=== PATIENT | male | born 1990 | race Caucasian/White ===

== ENCOUNTER 2020-12-23 09:56 | Emergency (ER) | payer MEDICAID, SELFPAY ==
--- NOTE | 2020-12-23 09:57 | ED.GENADUL_ITS ---
Discharge Plan Disposition Patient Disposition: HOME Condition: Good Discharge Details Clinical Impression: Muscle spasm, Contusion Primary Care Provider: Anaya,Local ED Provider: Olive Oconnor Home Meds and New Rx's Prescriptions: New cyclobenzaprine 10 mg tablet 10 mg PO TID PRN (Reason: muscle spasm) Qty: 10 RF: 0 Continued dextroamphetamine-amphetamine [Adderall] 5 MG tablet 5 mg PO DAILY RF: 0 Omeprazole Magnesium [Prilosec] 10 MG SUSPDR.PKT 20 mg PO DAILY RF: 0 alprazolam [Xanax] 1 MG tablet 1 - 2 mg PO DAILY PRN PRNRF: 0 Discharge Instructions Instructions: Contusion in Adults (ED), Muscle Spasm (ED) Additional Instructions: Encourage water intake. Please continue with Tylenol and/or ibuprofen as needed for discomfort. You may augment this with the Flexeril as prescribed to help with muscle spasm. Do not drive will take this medication. Please encourage gentle stretching and frequent ambulation. He may use massage or heat to help with muscle spasms. Referral for primary care has been sent. I would like for you to be reevaluated in the next 1 to 2 weeks. If you develop weakness, sensation changes, change in your bowel or bladder habits or other new/worsening symptoms please seek care urgently once again. Medical Decision Making Patient is a pleasant 30-year-old male presenting today with chief complaint of right groin and left pain. He reports that yesterday, while snowboarding, he went off a jump and landed directly on his left hip. States that he immediately noted right groin pain. Since then, the left hip has become more painful. Is also endorsing some pain over the sacrum and coccyx. Denies any urinary bowel dysfunction. No incontinence. Denies other injury the time of the incident. He was helmeted and denies striking his head or loss of consciousness. No nausea or vomiting. Does not take anything for his discomfort. States that he was able to snowboard down the wrist but not in. However, upon awakening this morning, his pain was greatly increased. He is not taking anything for this. Has been ambulating with a cane today to help with his discomfort. Patient denies any numbness or tingling. On exam he appears uncomfortable but nontoxic. He has slight midline discomfort over the sacrum and coccyx. No step-off, swelling, ecchymosis over this area. No midline tenderness elsewhere. No pain over the SI joints. Patient is very tender over the medial aspect of the upper right side. No ecchymosis, deformity. She is also tender over the left hip, primarily over the greater trochanter and iliac crest. No pelvic instability is appreciated. He has 2+ distal pulses in his lower extremity, no saddle paresthesias, reflexes intact and equal bilaterally. Do not see evidence at this time to suggest cauda equina. I have low suspicion for fracture or pelvic instability. I not see any ligamentous disruption at this point. Will give Tylenol, ibuprofen and Flexeril to help with discomfort. I do believe there is a large amount of muscular spasm after sleeping last night. Plan for imaging of the left hip and pelvis. He is tender over the sacrum will obtain imaging of the well. FINDINGS: Bones/joints: Normal. No acute fracture. Soft tissues: Normal. IMPRESSION: Normal sacrum and coccyx FINDINGS: Bones/joints: Unremarkable. No acute fracture. Soft tissues: Unremarkable. IMPRESSION: No acute findings. I discussed the findings with the patient. He is feeling somewhat improved although still tight after the medication. He will continue with Tylenol and ibuprofen to help with discomfort.. He will continue with Flexeril as needed for muscle spasm. Return precautions were discussed. He does not have a local primary care. I have asked care management to help arrange for follow-up in the next 2 weeks for reevaluation. We did discuss to return to activity. ADD. Gentle stretching and frequent ambulation. Also questions and concerns were addressed and he is in agreement with this plan. HPI General Mode of arrival: wheelchair . Date/Time Provider Initiated Documentation: 12/23/20 09:57 . Limitations to Documentation: no limitations . Information obtained by: patient and RN notes reviewed . History of Present Illness 30 year old M presents to the emergency department with the chief complaint of right groin and left hip injury, described as severe, with intensity rated at 7. and is localized to the left, right and lower extremity. Patient reports no radiation. Patient started experiencing this day(s) (1) and it has been constant. Immobilization improves symptom(s), Movement worsens symptoms . Patient notes no other symptoms.. Patient did receive the following treatments prior to arrival, none Related Data Home Medications Medication Instructions Recorded Confirmed Omeprazole Magnesium [Prilosec] 20 mg PO DAILY packet 09/18/17 12/23/20 dextroamphetamine-amphetamine 5 mg PO DAILY tab-cap 09/18/17 12/23/20 [Adderall] alprazolam [Xanax] 1 - 2 mg PO DAILY PRN PRN 12/08/17 12/23/20 cyclobenzaprine 10 mg PO TID PRN #10 tab 12/23/20 Previous Rx's Medication Instructions Recorded cyclobenzaprine 10 mg PO TID PRN #10 tab 12/23/20 Allergies Allergy/AdvReac Type Severity Reaction Status Date / Time Sulfa (Sulfonamide Allergy Intermediate Unverified 12/23/20 10:07 Antibiotics) lactose Allergy Mild Unverified 12/23/20 10:07 Review of Systems Constitutional Constitutional: Reports as per HPI, Denies chills, Denies fatigue, Denies fever(s), Denies frequent falls and Denies headache(s) Eyes Eyes: Denies change in vision ENT Ears, Nose, Mouth, and Throat: Denies headache(s) Cardiovascular Cardiovascular: Denies chest pain, Denies dyspnea and Denies dyspnea on exertion Respiratory Respiratory: Denies cough, Denies dyspnea and Denies dyspnea on exertion Gastrointestinal Gastrointestinal: Denies abdominal pain, Denies change in bowel habits and Denies fecal incontinence Genitourinary Genitourinary: Reports as per HPI, Denies urinary hesitancy and Denies urinary incontinence Musculoskeletal Musculoskeletal: Reports as per HPI, Reports back pain, Denies muscle weakness, Denies numbness, Reports stiffness and Denies tingling Integumentary/Breasts Skin/Breast: Reports as per HPI and Denies rash Neurologic Neurologic: Reports as per HPI, Denies frequent falls, Denies headache(s), Denies localized weakness, Denies numbness, Denies radicular pain, Denies sensory deficit, Denies tingling and Denies paresthesias Endocrine Endocrine: Denies fatigue PFSH Medical History ADHD Anxiety Autoimmune disease Dyspepsia Surgical History EGD - MAC (12/10/17) Repair, ACL Trigger Finger release Social History Smoking/Tobacco Use Status: Former Tobacco Use Quit Date: 11/22/20 Smoking risk assessment performed?: Yes Drug use: Daily Substance use type: marijuana Exam Const General: cooperative, healthy appearing, uncomfortable, no acute distress, well developed and well groomed Nutritional Appearance: average body habitus and well nourished Orientation: alert and awake Eyes General: appearance normal, both eyes and all related structures Neck Neck: normal visual inspection, full ROM, no lymphadenopathy and no meningeal s igns Resp Effort & Inspection: normal respiratory effort and able to speak in complete sentences Auscultation: clear to auscultation bilaterally, no rales, no rhonchi and no wheezes Cardio Rate: regular rate Rhythm: regular rhythm Heart Sounds: S1 normal and S2 normal Back/Spine/Pelvis Back: no CVA tenderness Cervical Spine: normal cervical lordosis, cervical ROM normal, No cervical spasm, No cervical spinal tenderness and No step off deformity Thoracic/Lumbar Spine: thoracic and lumbar spine normal to inspection, No thoraco-lumbar ROM normal (patient will not bend forward secondary to pain), No thoracic spinal tenderness, No lumbar spinal tenderness and No straight leg raise positive (patient unable to complete secondary to pain in L hip and R groin) Pelvis: pain with anterior-posterior compression (pain over left side of pelvis with palpation, no instability noted), no buttock ecchymosis, no buttock tenderness, no buttock swelling and no unilateral elevation of iliac crest Sacroiliac joints: bilaterally nontender Sacrum: no ecchymosis, no erythema, no swelling and tenderness Coccyx: no swelling and tenderness Skin General skin exam: no rashes or lesions noted Neuro General: patient alert and patient awake Cognition: normal cognition Speech: speech normal Gait: gait abnormal (ambulating with cane) Motor: muscle tone normal throughout, strength 5/5 throughout, no movement abnormalities noted and no fasciculations Sensory Exam: no sensory deficits noted (no saddle paresthesias) DTR's: Rt Patellar: 2+, Lt Patellar: 2+, Rt Ankle: 2+ and Lt Ankle: 2+ Extrem General: normal to inspection, full ROM, capillary refill normal, no joint enlargement, no pedal edema, no calf tenderness and abnormal gait Right lower extremity: normal to inspection Upper/lower leg/hip images: 1. area of discomfort. No swelling, ecchymosis or deformity. No erythema or warmth. Patient has limited external rotation of the right hip secondary to pain in the groin. He is able to resist both medially and laterally but does have increased pain with medial resistance. Patient is 2+ distal pulses. No saddle paresthesias. Reflexes intact. No evidence to suggest muscular defect or rupture. 2. Patient reports that this is the area that he landed on. He is quite tender over this area with palpation. No ecchymosis or swelling. He has full range of motion of the hip but reports increased discomfort with external rotation. Reflexes are intact. 2+ pulses. He has pain with AP and lateral compression of this area but no instability is noted. She is doing what is from the pressure applied to the area of discomfort. Psych Appearance: grossly normal and well kempt Mental Status: mental status grossly normal Speech and Movement: speech and movement normal
[2020-12-23 10:01] VITALS: BP 133/78; PULSE 91; RESP 16; TEMP 36.5; O2SAT 96
--- NOTE | 2020-12-23 10:15 | DI.RAD_ITS ---
EXAM: XR SACRUM COCCYX CLINICAL HISTORY: fall snowboarding yesterday. TECHNIQUE: 2D digital imaging was performed. COMPARISON: CR,XR XR HIP LT COMPLETE AP PELVIS from 12/23/2020 FINDINGS: There is no obvious sacral or coccyx fracture. Sacroiliac joints appear unremarkable. Bone density is normal. No osseous lesions evident. IMPRESSION: DATA REPOSITORY: RADIATION DOSE DELIVERED:
--- NOTE | 2020-12-23 10:20 | DI.RAD_ITS ---
EXAM: XR HIP LT COMPLETE AP PELVIS CLINICAL HISTORY: fall on left hip snowboarding yesterday. TECHNIQUE: 2D digital imaging was performed. COMPARISON: No exams were available for comparison FINDINGS: There is no evidence of pelvic fracture or diastasis of the symphysis pubis and sacroiliac joints. R ight hip appears were unremarkable. Although there are no obvious fractures of the left hip, please note that the lateral aspect of the greater trochanter of the left hip is not included on the field o f view here. IMPRESSION: As above. If clinically indicated additional images of the left hip can be performed to include the entire greater trochanter. DATA REPOSITORY: RADIATION DOSE DELIVERED:
[2020-12-23] MEDS: Acetaminophen 500 MG TAB 1000 MG PO (10:29)
[2020-12-23] MEDS: Cyclobenzaprine 10 MG TAB PO (10:30)
[2020-12-23] MEDS: Ibuprofen 600 MG TAB PO (10:30)
--- NOTE | 2020-12-23 11:11 | DI.VRAD_ITS ---
PROCEDURE INFORMATION: Exam: XR Sacrum and Coccyx, 2 or More Views Exam date and time: 12/23/2020 10:59 AM Age: 30 years old Clinical indication: Injury or trauma; Blunt trauma (contusions or hematomas); Injury details: Fall snowboarding TECHNIQUE: Imaging protocol: XR of the sacrum and coccyx, 2 or more views. COMPARISON: CR XR HIP LT COMPLETE AP PELVIS 12/23/2020 10:41 AM FINDINGS: Bones/joints: Normal. No acute fracture. Soft tissues: Normal. IMPRESSION: Normal sacrum and coccyx Dictated and Authenticated by: Ned Guerrier MD. Ordering:ILENE Schaefer MD
--- NOTE | 2020-12-23 11:11 | DI.VRAD_ITS ---
PROCEDURE INFORMATION: Exam: XR Left Hip with Pelvis when Performed Exam date and time: 12/23/2020 11:02 AM Age: 30 years old Clinical indication: Injury or trauma; Fall; Blunt trauma (contusions or hematomas); Left; Groin TECHNIQUE: Imaging protocol: XR Left hip with pelvis when performed. Views: 2 or 3 views. COMPARISON: No relevant prior studies available. FINDINGS: Bones/joints: Unremarkable. No acute fracture. Soft tissues: Unremarkable. IMPRESSION: No acute findings. Dictated and Authenticated by: Ned Guerrier MD. Ordering:ILENE Schaefer MD
--- NOTE | 2020-12-23 11:30 | NUR.NOTE ---
Nursing Note: Referral given to Care Management to establish PCP and follow up in 2 weeks. Constance Villarreal
[2020-12-23 11:45] VITALS: BP 126/66; PULSE 76; RESP 16; TEMP 36.7; O2SAT 99
== END 2020-12-23 11:46 | disposition home or self-care (01) ==
PROVIDERS: Emergency Provider Physician Assistant
DX: S70.02XA Contusion of left hip, initial encounter (principal); S30.1XXA Contusion of abdominal wall, initial encounter; M62.838 Other muscle spasm; V00.311A Fall from snowboard, initial encounter; Y93.23 Activity, snow (alpine) (downhill) skiing, snowboarding, sledding, tobogganing and snow tubing
CPT/HCPCS: 99284; 72220; 73502

== ENCOUNTER 2021-01-13 15:07 | Emergency (ER) | payer MEDICAID, SELFPAY ==
[2021-01-13 15:19] VITALS: BP 125/89; PULSE 92; RESP 20; TEMP 36.7; O2SAT 98
--- NOTE | 2021-01-13 15:25 | ED.GENADUL_ITS ---
Discharge Plan Disposition Patient Disposition: HOME Condition: Stable Discharge Details Clinical Impression: Distal radial fracture Primary Care Provider: Anaya,Local ED Provider: Olive Oconnor Home Meds and New Rx's Prescriptions: New ibuprofen 800 mg tablet 800 mg PO TID PRN (Reason: pain) Qty: 20 RF: 0 Continued dextroamphetamine-amphetamine [Adderall] 5 MG tablet 5 mg PO DAILY RF: 0 Omeprazole Magnesium [Prilosec] 10 MG SUSPDR.PKT 20 mg PO DAILY RF: 0 alprazolam [Xanax] 1 MG tablet 1 - 2 mg PO DAILY PRN PRNRF: 0 Discharge Instructions Instructions: Wrist Fracture in Adults (ED) Additional Instructions: Encourage rest, ice, elevation. Tylenol and/or ibuprofen as needed for discomfort. Ibuprofen has been sent to your pharmacy as discussed. Please keep splint on until evaluated by orthopedics. Sling to help with elevation. Please call orthopedics on Friday to schedule follow-up appointment. Please avoid any lifting with his hand. If you develop any new or worsening symptoms please seek care urgently once again. Referrals: Chang Barnett MD [ [facility] STAFF PHYSICIAN] - Discharge Data Discharge Date/Time-TO BE ENTERED AT DEPARTURE: 01/13/21 16:40 Medical Decision Making Patient is a pleasant [id number] 30-year-old male presenting chief complaint of left wrist pain. He reports a prior to arrival he was snowboarding when he lost his edge coming off of the rail. Landed with the left hand bent behind him. Immediately noted distal radius pain that can radiate up into the snuffbox. Denies any numbness or tingling. Denies other injury the time of the incident. He was wearing a helmet. On exam, patient appears nontoxic. He does have swelling and palpable defect to the distal radius. He does have tenderness over the anatomical snuffbox as well as with axial loading of the thumb. Sensation is intact, to the pulses, capillary refill is intact. Full range of motion of the elbow. Patient is requesting analgesics and feels that ibuprofen will work well. We will give him ibuprofen and obtain x-ray of the left wrist with navicular views. X-rays reviewed by myself. I am concerned for an intra-articular distal radius fracture that is per slightly comminuted but fairly nondisplaced. Patient will be fitted with a thumb spica splint. I encouraged rest, ice, elevation. Tylenol and/or ibuprofen as needed for discomfort. He reports he done well with 800 mg ibuprofen historically. Will prescribe him this. Patient will follow up with orthopedics and will call Friday to schedule appointment. Return precautions were discussed. All his questions and concerns were and he is in agreement with this plan. HPI General Mode of arrival: ambulatory . Date/Time Provider Initiated Documentation: 01/13/21 15:17 . Limitations to Documentation: no limitations . Information obtained by: patient and RN notes reviewed . History of Present Illness 30 year old M presents to the emergency department with the chief complaint of left wrist pain, described as moderate, with intensity rated at 6. Quality is described as aching, and is localized to the left and upper extremity. Patient reports no radiation. Patient started experiencing this minute(s) and it has been constant. Immobilization improves symptom(s), Movement worsens symptoms . Patient notes no other symptoms.. Patient did receive the following treatments prior to arrival, none Related Data Home Medications Medication Instructions Recorded Confirmed Omeprazole Magnesium [Prilosec] 20 mg PO DAILY packet 09/18/17 01/13/21 dextroamphetamine-amphetamine 5 mg PO DAILY tab-cap 09/18/17 01/13/21 [Adderall] alprazolam [Xanax] 1 - 2 mg PO DAILY PRN PRN 12/08/17 12/23/20 ibuprofen 800 mg PO TID PRN #20 tab 01/13/21 Previous Rx's Medication Instructions Recorded ibuprofen 800 mg PO TID PRN #20 tab 01/13/21 Allergies Allergy/AdvReac Type Severity Reaction Status Date / Time Sulfa (Sulfonamide Allergy Intermediate Unverified 01/17/21 09:43 Antibiotics) lactose Allergy Mild Unverified 01/17/21 09:43 General Stated Complaint: Orthopedic SEVERO: 4 Review of Systems Constitutional Constitutional: Reports as per HPI, Denies chills, Denies fever(s), Denies headache(s) and Denies weakness ENT Ears, Nose, Mouth, and Throat: Denies headache(s) Cardiovascular Cardiovascular: Reports as per HPI Respiratory Respiratory: Reports as per HPI and Denies cough Musculoskeletal Musculoskeletal: Reports as per HPI and Denies tingling Integumentary/Breasts Skin/Breast: Reports as per HPI, Denies rash and Denies wounds Neurologic Neurologic: Reports as per HPI, Denies headache(s), Denies tingling, Denies paresthesias and Denies weakness PFSH Medical History ADHD Anxiety Autoimmune disease Dyspepsia Surgical History EGD - MAC (12/10/17) Repair, ACL Trigger Finger release Social History Smoking/Tobacco Use Status: Former Tobacco Use Quit Date: 11/22/20 Smoking risk assessment performed?: Yes Drug use: Daily Substance use type: marijuana Current gender identity: male Do you feel safe at home: Yes Do you feel safe in your relationship?: Yes Exam Const General: cooperative, healthy appearing, comfortable, no acute distress, well developed and well groomed Nutritional Appearance: average body habitus and well nourished Orientation: alert and awake Resp Effort & Inspection: normal respiratory effort, able to speak in complete sentences and no respiratory distress Cardio Rate: regular rate Rhythm: regular rhythm Skin General skin exam: no rashes or lesions noted Lesions: no lesions Rashes: no rashes Trauma: no lacerations or abrasions Neuro General: patient alert and patient awake Cognition: normal cognition Speech: speech normal Gait: normal gait Motor: muscle tone normal throughout Sensory Exam: no sensory deficits noted Extrem Left upper extremity: normal capillary refill, no joint enlargement, elbow/forearm Details: normal to inspection, normal ROM and distal pulses intact; no tenderness, no swelling and no deformity, wrist Details: abnormal to inspection, tenderness Location: of the distal radius and of the anatomic snuffbox, swelling Location: of the dorsal wrist, abnormal ROM, deformity, normal vascular exam and radial pulse present; no abrasions, no lacerations, no ecchymosis and no crepitus and hand Details: normal to inspection, normal capillary refill, neuromotor exam normal, neurosensory exam normal, tenderness (with axial loading of thumb over snuff box) and vascular exam Details: radial pulse present and normal capillary refill Psych Appearance: grossly normal and well kempt Mental Status: mental status grossly normal Speech and Movement: speech and movement normal Course Vital Signs Vital signs: Vital Signs Temperature 36.7 C 01/13/21 15:19 Pulse 92 H 01/13/21 15:19 Respiratory Rate 20 01/13/21 15:19 Blood Pressure 125/89 01/13/21 15:19 Pulse Oximetry 98 01/13/21 15:19 Temperature 36.7 C 01/13/21 15:19 Temperature Source Skin 01/13/21 15:19 Pulse 92 H 01/13/21 15:19 Respiratory Rate 20 01/13/21 15:19 Blood Pressure 125/89 01/13/21 15:19 Blood Pressure Position Sitting 01/13/21 15:19 Pulse Oximetry 98 01/13/21 15:19 Oxygen Delivery Method Room Air 01/13/21 15:19 Oxygen Flow Rate 0 01/13/21 15:19 Pain Level 6 01/13/21 15:19
--- NOTE | 2021-01-13 15:30 | DI.RAD_ITS ---
EXAM: XR WRIST LT COMP NAVICULAR CLINICAL HISTORY: fall snowboarding TECHNIQUE: COMPARISON: No exams were available for comparison FINDINGS: Four views were obtained. There is a comminuted fracture of the distal radius which extends through the distal articular surface. There is an associated mildly displaced ulnar styloid fracture. No fr acture seen involving the carpal bones. Incidental note is made of an old healed 2nd metacarpal fracture. IMPRESSION: RADIATION DOSE DELIVERED: Total DLP
[2021-01-13] MEDS: Ibuprofen 600 MG TAB PO (15:36)
--- NOTE | 2021-01-13 16:44 | DI.VRAD_ITS ---
PROCEDURE INFORMATION: Exam: XR Left Wrist Exam date and time: 01/13/2021 4:06 PM Age: 30 years old Clinical indication: Other: Fall snowboarding TECHNIQUE: Imaging protocol: XR Left wrist. Views: 3 or more views. COMPARISON: No relevant prior studies available. FINDINGS: Bones/joints: Markedly comminuted distal radial fracture including extension to the radiocarpal joint with minimal displacement but overall mild apex palmar angulation. Fracture tip of ulnar styloid of indeterminate age. Old healed fracture base of index finger metacarpal. No line Soft tissues: Moderate soft tissue swelling of the wrist. IMPRESSION: 1. Acute comminuted distal radial fracture with articular surface involvement and ulnar styloid fracture of indeterminate age. 2. Old healed fracture metacarpal index finger. Dictated and Authenticated by: Billy Curtis MD. Ordering:ILENE Schaefer MD
== END 2021-01-13 16:40 | disposition home or self-care (01) ==
PROVIDERS: Emergency Provider Physician Assistant
DX: S52.572A Other intraarticular fracture of lower end of left radius, initial encounter for closed fracture (principal); S52.612A Displaced fracture of left ulna styloid process, initial encounter for closed fracture; V00.311A Fall from snowboard, initial encounter; Y93.23 Activity, snow (alpine) (downhill) skiing, snowboarding, sledding, tobogganing and snow tubing
CPT/HCPCS: 29125; 99283; 73110

== ENCOUNTER 2021-01-17 11:19 | Outpatient (CLI) | payer MEDICAID, SELFPAY ==
--- NOTE | 2021-01-17 09:51 | DI.RAD_ITS ---
EXAM: XR WRIST LT COMPLETE CLINICAL HISTORY: distal radius fracture. TECHNIQUE: 2D digital imaging was performed. COMPARISON: CR,XR XR WRIST LT COMP NAVICULAR from 01/13/2021 FINDINGS: In splint views compared to 01/13/2021. Again noted are the comminuted fracture fragments of the distal radius which fracture lines violates the radiocarpal joint surface. Fracture of the tip of the ulnar styloid process is also again noted. There is no carpal dislocation. No obvious scaphoid fracture. IMPRESSION: DATA REPOSITORY: RADIATION DOSE DELIVERED:
== END 2021-01-17 11:20 | disposition home or self-care (01) ==
LOC: DIORS 11:19
PROVIDERS: Visit Provider Physician Assistant Surgical
DX: S52.592A Other fractures of lower end of left radius, initial encounter for closed fracture (principal); S52.612A Displaced fracture of left ulna styloid process, initial encounter for closed fracture
CPT/HCPCS: 73110

== ENCOUNTER 2021-02-14 10:38 | Outpatient (CLI) | payer MEDICAID, SELFPAY ==
--- NOTE | 2021-02-14 10:30 | DI.RAD_ITS ---
EXAM: XR WRIST LT LIMITED CLINICAL HISTORY: f/u fracture. TECHNIQUE: 2D digital imaging was performed. COMPARISON: CR XR WRIST LT COMPLETE from 01/17/2021 FINDINGS: Cast has been removed. The fracture lines in distal radius are again noted and again noted to violat es the radiocarpal joint surface. The ulnar styloid fracture is also again noted. Scapholunate dist ance is normal. No fracture of the scaphoid evident. No carpal dislocation. IMPRESSION: DATA REPOSITORY: RADIATION DOSE DELIVERED:
== END 2021-02-14 10:39 | disposition home or self-care (01) ==
LOC: DIORS 10:38
PROVIDERS: Visit Provider Physician Assistant
DX: S52.612D Displaced fracture of left ulna styloid process, subsequent encounter for closed fracture with routine healing (principal); S52.592D Other fractures of lower end of left radius, subsequent encounter for closed fracture with routine healing
CPT/HCPCS: 73100

== ENCOUNTER 2021-03-14 15:41 | Outpatient (CLI) | payer MEDICAID, SELFPAY ==
--- NOTE | 2021-03-14 14:00 | DI.RAD_ITS ---
Exam(s) XR WRIST LT LIMITED EXAM: XR WRIST LT LIMITED CLINICAL HISTORY: F/U FRACTURE. TECHNIQUE: 2D digital imaging was performed. COMPARISON: CR XR WRIST LT LIMITED from 02/14/2021 FINDINGS: There has been some healing at the multiple fracture lines in the distal radius. Fracture lines are still faintly visible. No significant displacement. Tip of the ulnar styloid process fractures agai n noted. Scaphoid appears unremarkable on these two views. Is no significant ulnar variance. IMPRESSION: DATA REPOSITORY: RADIATION DOSE DELIVERED:
== END 2021-03-14 15:42 | disposition home or self-care (01) ==
LOC: DIORS 15:41
PROVIDERS: Visit Provider Student in an Organized Health Care Education/Training Program
DX: S52.592D Other fractures of lower end of left radius, subsequent encounter for closed fracture with routine healing (principal); S52.612D Displaced fracture of left ulna styloid process, subsequent encounter for closed fracture with routine healing
CPT/HCPCS: 73100

== ENCOUNTER 2021-04-24 15:19 | Outpatient (CLI) | payer MEDICAID, SELFPAY ==
--- NOTE | 2021-04-24 14:45 | DI.RAD_ITS ---
Exam(s) XR WRIST LT LIMITED EXAM: XR WRIST LT LIMITED CLINICAL HISTORY: f/u TECHNIQUE: COMPARISON: CR XR WRIST LT LIMITED from 03/14/2021 FINDINGS: Two views were obtained again show healing fracture of distal radius with no gross interval change in alignment of fracture fragments comparison previous examination of March 14. Ulnar styloid fracture again noted as well. IMPRESSION: RADIATION DOSE DELIVERED: Total DLP
== END 2021-04-24 15:20 | disposition home or self-care (01) ==
LOC: DIORS 15:19
PROVIDERS: Visit Provider Student in an Organized Health Care Education/Training Program
DX: S52.592D Other fractures of lower end of left radius, subsequent encounter for closed fracture with routine healing (principal); S52.612D Displaced fracture of left ulna styloid process, subsequent encounter for closed fracture with routine healing
CPT/HCPCS: 73100

== ENCOUNTER → 2022-07-16 15:25 | Outpatient (CLI) | payer MEDICAID, SELFPAY ==
--- NOTE | 2022-07-16 | DI.RAD_ITS ---
Exam(s) XR ABDOMEN FLAT PLATE EXAM: 2D digital imaging was performed. CLINICAL HISTORY: LOWER ABD PAIN R10.9 DYSURIA R30.0 FLANK PAIN R10.30. COMPARISON: CR ABD FLAT UPRIGHT PA CHEST from 07/08/2012 TECHNIQUE: Supine views of the abdomen performed. FINDINGS: BOWEL GAS PATTERN: Stool seen throughout colon nondistended. CALCIFICATIONS: No visible radiopaque calcifications. OSSEOUS STRUCTURES: Normal for age. OTHER FINDINGS: None. IMPRESSION: 1. Increased quantity of stool. Nonobstructive bowel gas pattern. 2. No radiopaque calculi. DATA REPOSITORY: RADIATION DOSE DELIVERED:
--- OUTSIDE RECORDS SUMMARY | 2022-07-16 15:30 | XMS_ITS | Encounter Summary ---
:1990 Author Organization [facility] Address [address] [place] [address] Care Team Providers Name Role Phone Unavailable Primary Care Provider Unavailable Encounter Details Date Type Department Care Team Description 01/14/2006 Hospital Encounter [facility] - Norbert Cisneros MD [address] [address] [address] [place], [place] [address] (Wo rk) Social History Tobacco Use Types Packs/Day Years Used Date Never Assessed Sex Assigned at Date Recorded Not on file documented as of this encounter Discharge Disposition Disposition Code Departure Means Destination Auto Discharge documented in this encounter Plan of Treatment Not on filedocumented as of this encounter Visit Diagnoses Not on filedocumented in this encounter
--- OUTSIDE RECORDS SUMMARY | 2022-07-16 15:30 | XMS_ITS | Encounter Summary ---
:1990 Author Organization [facility] Address [address] [place] [address] Care Team Providers Name Role Phone Unavailable Primary Care Provider Unavailable Encounter Details Date Type Department Care Team Description 07/03/2006 Hospital Encounter [facility] - Norbert Cisneros MD [address] [address] [address] [place], [place] [address] (Wo rk) Social History [...]
--- OUTSIDE RECORDS SUMMARY | 2022-07-16 15:30 | XMS_ITS | Encounter Summary ---
:[address] [facility] Address [address] [place] [address] Care Team Providers Name Role Phone None, Provider Primary Care Provider Unavailable Encounter Details Date Type Department Care Team Description 04/19/2022 Lab Requisition [facility] Remington Palacio MD Encounter for other Pathology & 41 MEDICAL general examina [place] Laboratory Medicine [place], [place] [address] [facility] [phone] [place], [place] [id number] Social History Tobacco Use Types Packs/Day Years Used Date Never Assessed Sex Assigned at Date Recorded Not on file documented as of this encounter Plan of Treatment Not on filedocumented as of this encounter Procedures Procedure Name Priority Date/Time Associated Diagnosis Comme nts SURGICAL PATHOLOGY Today 04/19/2022 9:56 EDT Re sults for this procedure are i n the results section. documented in this encounter Results SURGICAL PATHOLOGY (04/19/2022 9:56 EDT) Note to Patient The following [facility] MEDICAL pathology results have CENTER been interpreted by LABORATORY your pathologist and SERVICES may be available to you before your health provider has had the opportunity to review them. Please allow time for your provider to receive these results and explore management options, if applicable. Final Diagnosis A. 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 CENTER - Negative for dysplasia. LABORATORY SERVICES B. COLON, RANDOM, BIOPSY: - Colonic mucosa with no specific pathologic features. Attestation By the signature [facility] MEDICAL Electronica lly below, the attending CENTER signed by physician Paulina certifies LABORATORY MD Jorge L on that they have 1) SERVICES 04/23/2022 at 1227 personally conducted a gross and/or microscopic examination of the described specimen(s), and/or personally interpreted the results of laboratory testing of the described specimen(s), and 2) personally rendered or confirmed the above diagnosis. Clinical History Anemia; (upward arrow) [facility] MEDICAL normal, (downward CENTER arrow) normal LABORATORY SERVICES Gross Description A. [facility] MEDICAL Received in formalin gurinder d with proper patient identification (initials H, C) and GE junction are two encinas-white focally dark brown speckled tissues (0.4 x 0.2 x 0.1 cm and 0.3 x 0.2 x 0.1 cm). Entirely submitted in A1. CENTER LABORATORY B. SERVICES Received in formalin gurinder d with proper patient identification (initials H, C) and random colon Bx's are 7 encinas tissues (0.3 x 0.2 x 0.1 cm to 0.2 x 0.1 x 0.1 cm). Entirely submitted in B1-B2. JORGE L JAIMES 04/22/2022 8:21 Performing Lab [facility] LABORATORY SERVICES Scanned Images [facility] LABORATORY SERVICES Specimen Tissue - Entire colon (body structure) Tissue specimen (specimen) - Entire colo n (body structure) Performing Organization Address City/State/ZIP Code Phon e Number [facility]ORATORY [address] [place] [address] SERVICES documented in this encounter Visit Diagnoses Diagnosis Encounter for other general examination documented in this encounter Care Teams [employer] Supervisor Relationship Specialty Start Date End Date None, Provider PCP - General 01/13/20 documented as of this encounter
--- OUTSIDE RECORDS SUMMARY | 2022-07-16 15:30 | XMS_ITS | Encounter Summary ---
:1990 Author Organization [facility] Address [address] [place] [address] Care Team Providers Name Role Phone Unavailable Primary Care Provider Unavailable Encounter Details Date Type Department Care Team Description 12/10/2017 Hospital Encounter [facility]- Kathie Figueroa, Provider, [facility] [address] [facility] [phone] [place] [address] (Work) [phone] Social History Tobacco Use Types Packs/Day Years Used Date Never Assessed Sex Assigned at Date Recorded Not on file documented as of this encounter Discharge Disposition Disposition Code Departure Means Destination Home or Self Group Home documented in this encounter Plan of Treatment Not on filedocumented as of this encounter Visit Diagnoses Not on filedocumented in this encounter
--- OUTSIDE RECORDS SUMMARY | 2022-07-16 15:30 | XMS_ITS | Encounter Summary ---
:1990 Author Organization [facility] Address [address] [place] [address] Care Team Providers Name Role Phone None, Provider Primary Care Provider Unavailable Encounter Details Date Type Department Care Team Description 01/13/2020 Results Only [facility]- Paul Ortiz, [address] [place] [address] (Wo rk) Social History Tobacco Use Types Packs/Day Years Used Date Never Assessed Sex Assigned at Date Recorded Not on file documented as of this encounter Plan of Treatment Not on filedocumented as of this encounter Procedures Procedure Name Priority Date/Time Associated Comments Diagnosis LIPASE - [facility] Routine 01/13/2020 11:35 Results fo r this EDT procedure are i n the results section. COMPLETE BLOOD COUNT Routine 01/13/2020 11:35 Res ults for this WITH DIFFERENTIAL EDT procedure are in (AUTO) the results section. COMPREHENSIVE Routine 01/13/2020 11:35 Results fo r this METABOLIC PANEL (CMP) EDT proced ure are in the results section. documented in this encounter Results LIPASE - [facility] (01/13/2020 11:35 EDT) Pathologist Sig nature LIPASE SERPL-CCNC - [facility] 27 <251 U/L [facility] Specimen Performing Organization Address City/State/ZIP Code Phon e Number [facility] [address] [place] [address] [facility] COMPREHENSIVE METABOLIC PANEL (CMP) (01/13/2020 11:35 EDT) ALBUMIN [facility] 4.0 3.4 - 4.9 [facility] g/dL [facility] ALKALINE 56 38 - 126 U/L [facility] PHOSPHATASE - [facility] BILIRUBIN TOTAL 0.3 0.2 - 1.3 [facility] mg/dL [facility] BUN - [facility] 10 10 - 26 mg/dL [facility] CALCIUM - [facility] 8.7 8.5 - 10.5 [facility] mg/dL [facility] Chloride 102 96 - 110 [facility] mmol/L [facility] CO2 Total 30 21 - 32 mEq/L [facility] CREATININE 0.96 0.66 - 1.25 [facility] mg/dL [facility] eGFR >60 [facility] Comment: [facility] Chronic renal impairment is defined as GFR <60 Multiply result by 1.210 for patients . Anion Gap 8 0 - 18 [facility] GLUCOSE - [facility] 83 70 - 100 [facility] mg/dL [facility] Potassium 4.0 3.5 - 5.0 [facility] mEq/L [facility] Sodium 140 136 - 145 [facility] mEq/L [facility] TOTAL PROTEIN - 6.8 6.2 - 8.2 [facility] gm/dL [facility] SGOT/AST - [facility] 29 17 - 59 U/L [facility] SGPT/ALT - [facility] 24 0 - 50 U/L [facility] Specimen Performing Organization Address City/State/ZIP Code Phon e Number [facility] [address] LAB (ABNORMAL) COMPLETE BLOOD COUNT WITH DIFFERENTIAL (AUTO) (01/13/2020 11:35 EDT) Pathologist Sig nature Gran # 1.6 (L) 2.2 - 8.85 [facility] 10e3/uL CENTER LAB BASO # - [facility] 0.01 0.01 - 0.11 [facility] 10e/uL CENTER LAB BASO % - [facility] 0 0 - 2 % [facility] EOS # - [facility] 0.10 0.03 - 0.61 [facility] 10e3/ul CENTER LAB EOS % - [facility] 3 0 - 5 % [facility] GRAN % - [facility] 49.6 40 - 80 % [facility] HEMATOCRIT - [facility] 43.0 39.5 - 50.2 % [facility] HEMOGLOBIN - [facility] 14.3 13.8 - 17.3 [facility] g/dl [facility] IG# - [facility] 0.01 0 - 0.7 10e3/uL [facility] IG% - [facility] 0.3 0 - 0.9 % [facility] LYMPH # - [facility] 1.2 1.09 - 3.3 [facility] 10e3/ul [place] LYMPH% - [facility] 36.2 20 - 40 % [facility] MEAN CORPUSCULAR HGB - 28.3 27.6 - 33.0 pg [facility] MEAN CORPUSCULAR HGB 33.3 32.8 - 36.4 [facility] CONC - [facility] g/dL [facility] MEAN CELL VOLUME - 85.1 81 - 95 fl [facility] MONO # - [facility] 0.4 0.1 - 0.8 [facility] 10e3/uL [place] MONO% - [facility] 10.6 0 - 12 % [facility] PLATELET COUNT 193 141 - 377 [facility] 10e3/ul [place] RED BLOOD COUNT - [facility] 5.05 4.36 - 5.78 [facility] ME D 10e3/ul [place] RED CELL DISTRI WIDTH 12.7 <14.2 % [facility] WHITE BLOOD COUNT - 3.3 (L) 4.0 - 10.4 [facility] 10e3/ul [place] Specimen Performing Organization Address City/State/ZIP Code Phon e Number [facility] [address] [place] [address] [facility] documented in this encounter Visit Diagnoses Not on filedocumented in this encounter Care Teams Manager Report Relationship Specialty Start Date End Date None, Provider PCP - General 01/13/20 documented as of this encounter
--- OUTSIDE RECORDS SUMMARY | 2022-07-16 15:30 | XMS_ITS | Encounter Summary ---
:1990 Author Organization [facility] Address [address] [place] [address] Care Team Providers Name Role Phone Unavailable Primary Care Provider Unavailable Encounter Details Date Type Department Care Team Description 09/30/2005 Hospital Encounter [facility] - Norbert Cisneros MD [address] [address] [address] [place], [place] [address] (Wo rk) Social History [...]
--- OUTSIDE RECORDS SUMMARY | 2022-07-16 15:30 | XMS_ITS | Encounter Summary ---
:1990 Author Organization [facility] Address [address] [place] [address] Care Team Providers Name Role Phone None, Provider Primary Care Provider Unavailable Encounter Details Date Type Department Care Team Description 01/13/2020 Results Only Imaging [facility] - Rob Roldan, [facility] [place]iology Resul ts [address] [place], [place] [id number] [place] [address] [phone] (Wo rk) Social History Tobacco Use Types Packs/Day Years Used Date Never Assessed Sex Assigned at Date Recorded Not on file documented as of this encounter Plan of Treatment Not on filedocumented as of this encounter Procedures Procedure Name Priority Date/Time Associated Diagnosis Comme nts US ABDOMEN LIMITED 01/13/2020 13:27 Resul ts for this EDT procedure are i n the results section. documented in this encounter Results US ABDOMEN LIMITED (01/13/2020 13:27 EDT) Specimen Narrative [facility] - 01/13/2020 13:27 EDT ? EXAM: ULTRASOUND/RIGHT UPPER QUADRANT ? EX. D/ (1311) ? CLINICAL INFORMATION: ? Epigastric pain ? RIGHT UPPER QUADRANT ? Signs and Symptoms/Comments: ??Ep igastric pain ? Comparison: None available. ? Technique: Right upper quadrant a bdominal ultrasound was performed ? with color Doppler imaging. ? FINDINGS: ? Pancreas: The visible portion of the pancreas is grossly ? unremarkable. ? Liver: The liver is normal in siz e (measuring 16.6 cm). The liver is ? normal in echotexture. No focal h epatic mass is identified. ? Bile Ducts: No biliary dilatation is identified. The common bile duct ? measures 2.4 mm. ? Gallbladder: The gallbladder cont ains no stones. The gallbladder wall ? is normal in thickness (1.3 mm). No pericholecystic fluid is visible. ? No sonographic Ludwig's sign was elicited. ? Right Kidney: The right kidney is normal in size, measuring 12.2 cm. ? No renal mass is identified. No s hadowing calculi are visible. No ? hydronephrosis is present. ? IVC: The visible portion of the p roximal IVC is unremarkable. ? IMPRESSION: ? Normal right upper quadrant ultra sound. ? REPORT SIGNED IN OTHER VENDOR SYSTEM 01/13/2020 ?Reported B y: Drake Hatch MD ? CC: ? Transcribed Date/Time: 01/13/2020 (1327) ? Direct Service Worker: ? Printed Date/Time: 01/13/2020 (13 27) ? PAGE 1 ? Renetta d Report ? Procedure Note Drake Hatch MD - 01/13/2020 EXAM: ULTRASOUND/RIGHT UPPER QUADRANT E X. D/ (1311) CLINICAL INFORMATION: Epigastric pain RIGHT UPPER QUADRANT Signs and Symptoms/Comments: Epigastric pain Comparison: None available. Technique: Right upper quadrant abdomin al ultrasound was performed with color Doppler imaging. FINDINGS: Pancreas: The visible portion of the pa ncreas is grossly unremarkable. Liver: The liver is normal in size (jason suring 16.6 cm). The liver is normal in echotexture. No focal hepatic mass is identified. Bile Ducts: No biliary dilatation is id entified. The common bile duct measures 2.4 mm. Gallbladder: The gallbladder contains n o stones. The gallbladder wall is normal in thickness (1.3 mm). No per icholecystic fluid is visible. No sonographic Ludwig's sign was elicit ed. Right Kidney: The right kidney is jamil l in size, measuring 12.2 cm. No renal mass is identified. No shadowi ng calculi are visible. No hydronephrosis is present. IVC: The visible portion of the proxima l IVC is unremarkable. IMPRESSION: Normal right upper quadrant ultrasound. REPORT SIGNED IN OTHER VENDOR SYSTEM 01/13/2020 Reported By: Drake Hatch MD CC: Transcribed Date/Time: 01/13/2020 (9483 ) Direct Service Worker: Printed Date/Time: 01/13/2020 (0000) PAGE 1 Signed Report Performing Organization Address City/State/ZIP Code Phon e Number [facility] documented in this encounter Visit Diagnoses Not on filedocumented in this encounter Care Teams Mail Delivery Supervisor Relationship Specialty Start Date End Date None, Provider PCP - General 01/13/20 documented as of this encounter
--- OUTSIDE RECORDS SUMMARY | 2022-07-16 15:30 | XMS_ITS | Encounter Summary ---
:1990 Author Organization [facility] Address [address] [place] [address] Care Team Providers Name Role Phone Zeke Sam MD Primary Care Provider Unavailable Reason for Visit Reason Onset Date Comments Appointment Related 01/09/2018 Encounter Details Date Type Department Care Team Description 01/09/2018 Telephone [facility] Diana Sher MD Appointment Related Rheumatology & [address] [place] [address] [place] [address] [place], [place] [id number] Social History Tobacco Use Types Packs/Day Years Used Date Never Assessed Sex Assigned at Date Recorded Not on file documented as of this encounter Miscellaneous Notes Telephone Encounter - Sofie Santa RN - 01/12/2018 0903 EDT Cancelled in system elephone Encounter - Kathy Stratton - 01/09/2018 1841 EST PAS Message: Raymundo called to cancel appointment with Jenny Sher MD on 01/12 at 8:30a due to unable to make it. Patient would like a call back to reschedule? No, he will call to reschedule. documented in this encounter Plan of Treatment Not on filedocumented as of this encounter Visit Diagnoses Not on filedocumented in this encounter Care Teams Right Of Way Worker Relationship Specialty Start Date End Date Zeke Sam MD PCP - General 12/14/17 01/12/20 documented as of this encounter
--- OUTSIDE RECORDS SUMMARY | 2022-07-16 15:30 | XMS_ITS | Clinical Summary ---
:1990 Author Organization [facility] Address [address] [place] [address] Care Team Providers Name Role Phone None, Provider Primary Care Provider Unavailable Encounters Date Type Specialty Care Team Description 04/19/2022 Lab Requisition Clinical Laboratory Remington Palacio, Connie herrera for other general examina tion from Last 3 Months Immunizations Name Administration Dates Next Due Rabies 08/04/2019, 07/28/2019, 07/24/2019 Social History Tobacco Use Types Packs/Day Years Used Date Never Assessed Sex Assigned at Date Recorded Not on file Plan of Treatment Health Maintenance Due Date Last Done Comments Hepatitis C Screen 1990 COVID-19 Vaccine (#1) 1990 Procedures Procedure Name Priority Date/Time Associated Diagnosis Comme nts SURGICAL PATHOLOGY Today 04/19/2022 9:56 EDT Re sults for this procedure are i n the results section. from Last 3 Months Results SURGICAL PATHOLOGY (04/19/2022 9:56 EDT) Note to Patient The following [facility] MEDICAL pathology results have CENTER been interpreted by LABORATORY your pathologist and SERVICES may be available to you before your health provider has had the opportunity to review them. Please allow time for your provider to receive these results and explore management options, if applicable. Final Diagnosis A. 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 CENTER - Negative for dysplasia. LABORATORY SERVICES B. COLON, RANDOM, BIOPSY: - Colonic mucosa with no specific pathologic features. Attestation By the signature [facility] MEDICAL Electronica lly below, the attending CENTER signed by Paulina physician certifies LABORATORY MD Jorge L on that they have 1) SERVICES 04/23/2022 at 1227 personally conducted a gross and/or microscopic examination of the described specimen(s), and/or personally interpreted the results of laboratory testing of the described specimen(s), and 2) personally rendered or confirmed the above diagnosis. Clinical History Anemia; (upward arrow) [facility] MEDICAL normal, (downward CENTER arrow) normal LABORATORY SERVICES Gross Description A. [facility] MEDICAL Received in formalin gurinder d [...] JORGE L JAIMES 04/22/2022 8:21 Performing Lab [facility] SERVICES Scanned Images [facility] SERVICES Specimen Tissue - Entire colon (body structure) Tissue specimen (specimen) - Entire colo n (body structure) Performing Organization Address City/State/ZIP Code Phon e Number [facility] [address] [place] [address] SERVICES from Last 3 Months Insurance Payer Benefit Plan / Subscriber ID Effective Phone Address T ype Group Dates [place] [id number] 2020-Pres [address] Medicaid [place] ent [place] [id number] Helucio,Christopher Personal/Famil Self 1990 [address]) [place] [address] KariChristopher Personal/Famil Self 1990 [address] ([address]) [place] [address] KariChristopher Personal/Famil Self 1990 [address] ([address]) [place] [address] Care Teams Marketing Admin Relationship Specialty Start Date End Date None, Provider PCP - General 01/13/20
--- OUTSIDE RECORDS SUMMARY | 2022-07-16 15:30 | XMS_ITS | Encounter Summary ---
:1990 Author Organization [facility] Address [address] [place] [address] Care Team Providers Name Role Phone Zeke Sam MD Primary Care Provider Unavailable None, Provider Primary Care Provider Unavailable Encounter Details Date Type Department Care Team Description 01/09/2020 Results Only Imaging [facility] Estrella Brown attshanaw [facility] Radiology Resul isaiah Jason MD [address] [facility] [address] [place], [place] [id number] [place] [address] [id number] (Wo rk) Social History Tobacco Use Types Packs/Day Years Used Date Never Assessed Sex Assigned at Date Recorded Not on file documented as of this encounter Plan of Treatment Not on filedocumented as of this encounter Procedures Procedure Name Priority Date/Time Associated Diagnosis Comme nts CT ABDOMEN PELVIS W 01/09/2020 22:59 Resu lts for this CONTRAST EDT procedure are i n the results section. documented in this encounter Results CT ABDOMEN PELVIS W CONTRAST (01/09/2020 22:59 EDT) Specimen Narrative [facility] - 01/09/2020 22:59 EDT ? EXAM: CAT SCAN/ABDOMEN PELVIS WITH CONTRA EX. D/ (2223) ? CLINICAL INFORMATION: ? RLQ pain with guarding ? PROCEDURE INFORMATION: ? Exam: CT Abdomen And Pelvis With Contrast ? Exam date and time: 01/09/2020 10:0 3 PM ? Age: 29 years old ? Clinical indication: Abdominal pa in; Flank; Right lower quadrant ? (rlq); Additional info: Rlq pain with guarding ? TECHNIQUE: ? Imaging protocol: Computed tomogr aphy of the abdomen and pelvis ? with intravenous contrast. ? Radiation optimization: All CT sc ans at this facility use at ? least one of these dose optimizat ion techniques: automated ? exposure control; mA and/or kV ad justment per patient size ? (includes targeted exams where do se is matched to clinical ? indication); or iterative reconst ruction. ? Contrast material: OMNI 350; Cont rast volume: 100 ml; Contrast ? route: LT AC; ? COMPARISON: ? No relevant prior studies availab le. ? FINDINGS: ? Liver: Normal. No mass. ? Gallbladder and bile ducts: Marilny l. No calcified stones. No ? ductal dilation. ? Pancreas: Normal. No ductal dilat ion. ? Spleen: Normal. No splenomegaly. ? Adrenals: Normal. No mass. ? Kidneys and ureters: Normal. No h ydronephrosis. ? Stomach and bowel: Unremarkable. No obstruction. No mucosal ? thickening. ? Appendix: No evidence of appendic itis. ? Intraperitoneal space: Unremarkab le. No free air. No significant ? fluid collection. ? Vasculature: Unremarkable. No abd ominal aortic aneurysm. ? Lymph nodes: Unremarkable. No enl arged lymph nodes. ? Bladder: Unremarkable as visualiz ed. ? Reproductive: Unremarkable as vis ualized. ? Bones/joints: Unremarkable. No ac pedro fracture. ? Soft tissues: Unremarkable. ? PAGE 1 ? Renetta d Report ? (CONTINUED) ? IMPRESSION: ? No acute findings. ? REPORT SIGNED IN OTHER VENDOR SYSTEM 01/09/2020 ?Reported B y: Houston Fiore MD ? CC: ? Transcribed Date/Time: 01/09/2020 (2259) ? Wheel Filler: HIS.VRAD ? Printed Date/Time: 01/09/2020 (22 59) ? PAGE 2 ? Renetta d Report ? Procedure Note Houston Fiore MD - 01/09/2020 EXAM: CAT SCAN/ABDOMEN PELVIS WITH CONT RA EX. D/ (2223) CLINICAL INFORMATION: RLQ pain with guarding PROCEDURE INFORMATION: Exam: CT Abdomen And Pelvis With Contra st Exam date and time: 01/09/2020 10:03 PM Age: 29 years old Clinical indication: Abdominal pain; Fl ank; Right lower quadrant (rlq); Additional info: Rlq pain with g uarding TECHNIQUE: Imaging protocol: Computed tomography o f the abdomen and pelvis with intravenous contrast. Radiation optimization: All CT scans at this facility use at least one of these dose optimization te chniques: automated exposure control; mA and/or kV adjustme nt per patient size (includes targeted exams where dose is matched to clinical indication); or iterative reconstructio n. Contrast material: OMNI 350; Contrast v olume: 100 ml; Contrast route: LT AC; COMPARISON: No relevant prior studies available. FINDINGS: Liver: Normal. No mass. Gallbladder and bile ducts: Normal. No calcified stones. No ductal dilation. Pancreas: Normal. No ductal dilation. Spleen: Normal. No splenomegaly. Adrenals: Normal. No mass. Kidneys and ureters: Normal. No hydrone phrosis. Stomach and bowel: Unremarkable. No obs truction. No mucosal thickening. Appendix: No evidence of appendicitis. Intraperitoneal space: Unremarkable. No free air. No significant fluid collection. Vasculature: Unremarkable. No abdominal aortic aneurysm. Lymph nodes: Unremarkable. No enlarged lymph nodes. Bladder: Unremarkable as visualized. Reproductive: Unremarkable as visualize d. Bones/joints: Unremarkable. No acute fr acture. Soft tissues: Unremarkable. PAGE 1 Signed Report (CONTINUED) IMPRESSION: No acute findings. REPORT SIGNED IN OTHER VENDOR SYSTEM 01/09/2020 Reported By: Houston Fiore MD CC: Transcribed Date/Time: 01/09/2020 (529 ) Wheel Filler: Printed Date/Time: 01/09/2020 (5898) PAGE 2 Signed Report Performing Organization Address City/State/ZIP Code Phon e Number [facility] documented in this encounter Visit Diagnoses Not on filedocumented in this encounter Care Teams Shove Up Relationship Specialty Start Date End Date Zeke Sam MD PCP - General 12/14/17 01/12/20 None, Provider PCP - General 01/13/20 documented as of this encounter
== END ==
PROVIDERS: Visit Provider Family Medicine
DX: R10.30 Lower abdominal pain, unspecified (principal); R30.0 Dysuria
CPT/HCPCS: 74018

== ENCOUNTER 2022-07-16 22:08 | Outpatient (REF) | payer MEDICAID, SELFPAY ==
[2022-07-16 18:49] LABS: Bacteria Rare HPF (Negative); C & S Indicated? C&S Done As Ordered; Casts Negative LPF (Negative); Crystals Negative HPF (Negative); Epithelial Cells Rare HPF (Negative); Mucus Negative (Negative); RBC 0-2 HPF (0-2); WBC Negative HPF (0-5)
== END 2022-07-16 22:09 | disposition home or self-care (01) ==
LOC: LBN 22:08
PROVIDERS: Visit Provider Family Medicine
DX: R10.9 Unspecified abdominal pain (principal); R35.0 Frequency of micturition
CPT/HCPCS: 81015; 87086

== ENCOUNTER → 2022-09-19 02:12 | Outpatient (CLI) | payer MEDICAID, SELFPAY ==
--- NOTE | 2022-09-19 | DI.RAD_ITS ---
Exam(s) XR CHEST 2V PA LATERAL EXAM: XR CHEST 2V PA LATERAL CLINICAL HISTORY: CHRONIC COUGH, TECHNIQUE: 2D digital imaging was performed. COMPARISON: CR ABD FLAT UPRIGHT PA CHEST from 07/08/2012 FINDINGS: The heart is not enlarged. The lungs are clear and well expanded. No pleural effusion seen. Mediastin al contours appear intact. IMPRESSION: Normal chest. RADIATION DOSE DELIVERED: Total DLP
== END ==
PROVIDERS: Visit Provider Family Medicine
DX: R05.3 Chronic cough (principal)
CPT/HCPCS: 71046

== ENCOUNTER 2022-11-08 05:08 | Emergency (ER) | payer MEDICAID, SELFPAY ==
[2022-11-08 05:14] VITALS: BP 116/85; PULSE 89; RESP 16; TEMP 36.6; O2SAT 100
--- NOTE | 2022-11-08 05:45 | DI.CT_ITS ---
Exam(s) CT CHEST/ABD/PEL W EXAM: CT CHEST/ABD/PEL W CLINICAL HISTORY: lower chest/upper abd pain, vomiting, constipation. TECHNIQUE: Imaging Protocol: Axial computed tomography images with coronal and sagittal reformatted images were created and reviewed CONTRAST MATERIAL: Intravenous: Omnipaque 350 Contrast volume:100 ml Oral: no COMPARISON: CR XR ABDOMEN FLAT PLATE from 07/16/2022 CR XR CHEST 2V PA LATERAL from 09/19/2022 FINDINGS: CHEST: Tracheobronchial tree: Patent where visualized. Mediastinum and Soni: No dominant adenopathy or fluid collection. Pulmonary parenchyma: No consolidation or dominant measurable mass. Pleura: No effusion or pneumothorax. Lymph nodes: Within normal limits. Aorta: Thoracic portion non-dilated. Heart: Normal size. No pericardial effusion. Bones: Unremarkable for age. No lytic or blastic lesions. ABDOMEN: Exam limited by lack of oral contrast and lack of intra-abdominal fat. Liver: Normal density. No measurable mass. Gallbladder and biliary tract: No radiodense calculus or dilation. Pancreas: Normal density, no abnormal calcifications or inflammatory process. Spleen: Normal. Kidneys: Normal size, contour and axis. No radiodense stones or obstructive uropathy. No masses seen. Adrenal glands: No masses seen. Aorta: Abdominal portion non-dilated. Lymph nodes: Within normal limits. Soft tissues: Unremarkable. PELVIS: Bladder: Symmetric distention, no gross wall thickening. Bowel: No obstruction or bowel wall thickening. Appendix not seen. Peritoneal cavity: No ascites, collection or mesenteric inflammatory response. Bones: Unremarkable for age.. Reproductive organs: Within normal limits. IMPRESSION: No acute abnormality in the chest abdomen or pelvis.. RADIATION DOSE DELIVERED: 886.73mGy.cm Total DLP DATA REPOSITORY: All CT scans at this facility are submitted to the National Radiology Data Registry (NRDR) Dose Index Registry (DIR) with the [employer] (ACR). RADIATION OPTIMIZATION: All CT scans at this facility use at least one of these dose optimization te chniques: automated exposure control; mA and/or kV adjustment per patient size (includes targeted exa ms where dose is matched to clinical indication); or iterative reconstruction.
--- NOTE | 2022-11-08 05:48 | ED.GENADUL_ITS ---
Discharge Plan Disposition Patient Disposition: Home Condition: Stable Discharge Details Clinical Impression: Abdominal discomfort, Constipation, Hypoglycemia Primary Care Provider: Anaya,Local ED Provider: Jono Vasques Home Meds and New Rx's Prescriptions: Continued Omeprazole Magnesium [Prilosec] 10 MG SUSPDR.PKT 20 mg PO DAILY alprazolam [Xanax] 1 MG tablet 1 - 2 mg PO DAILY PRN PRN ibuprofen 800 mg tablet 800 mg PO TID PRN (Reason: pain) Qty: 20 0RF Discharge Instructions Instructions: Non-diabetic Hypoglycemia (ED), Abdominal Pain (ED) Additional Instructions: CT scan of your abdomen and pelvis today did not reveal any acute abnormality. There was no constipation noted. You had an episode of hypoglycemia (low blood sugar). Please be sure to maintain a healthy diet. Please contact your primary care physician to arrange follow-up. Return to the ER immediately for any worsening or new concerning symptoms. Discharge Data Discharge Date/Time-TO BE ENTERED AT DEPARTURE: 11/08/22 13:57 Medical Decision Making 0530 -- 32-year-old male with a history of anxiety, ADHD, Samson's esophagus and constipation for the past 6 months presents with nausea and abdominal pain for the past few days, pain worse today and associated with constipation and vomiting x1 this morning. Vitals within normal limits. Patient appears comfortable and nontoxic. His is tense but minimally tender throughout. He has no rigidity, distention or guarding. He points to his lower chest as also an area discomfort and states he feels that he has trouble taking a deep breath due to the abdominal fullness. He denies pleuritic pain. Discussed with patient that as he has been using all the standard treatments for constipation, it may be difficult to fully treat his constipation but we can rule out any other acute abdominal cause such as small bowel obstruction. Patient states he would mainly like fluids as he has had nausea with decreased p.o. intake. We will place an IV, bolus IV fluids, screening labs, CT chest abdomen and pelvis, IV Tylenol and IV Toradol. 0715 --labs reviewed. Normal white blood cell count. Glucose 66, npo pending ct scan. Patient reassessed and he states his pain and nausea has not improved. Discussed that I would not commend narcotics considering his constipation and he is agreeable. We will give a dose of Phenergan for his nausea and continue to monitor. 0800 -- Case endorsed to Dr. Vasques to follow up on imaging and final disposition. Medical Records Medical records reviewed: Yes I reviewed the patient's medical records. HPI General Mode of arrival: ambulatory . Date/Time Provider Initiated Documentation: 11/08/22 05:26 . Limitations to Documentation: no limitations . Information obtained by: patient . HPI Narrative: Patient is a 32-year-old male with a history of chronic constipation for the past 6 months, ADHD, anxiety, Samson's esophagus who presents for constipation, abdominal pain and vomiting once today. He states he has had a few days of abdominal pain but states it was worse today and associated with vomiting. He states his primary care doctor advised to come to the ER if he ever develops vomiting. Patient states the vomit was 1 time and bile. He describes the abdominal pain as intermittent and aching. He states he has been having difficulty eating and drinking for the past few days secondary to nausea. He states his last bowel movement was this morning but small. He states he gave himself an enema without significant relief. He states for the past 6 months he has had episodes where he has bowel movements multiple times in a row and then other times where he has small hard bowel movements that are difficult to pass. He states he has used Colace, suppositories, MiraLAX, magnesium citrate and enemas which help at times but at other times not beneficial. He states he had a EGD and colonoscopy here within the last year which showed a Samson's esopha mariano. He has not taken admission for the pain. He states he has frequently changed his diet secondary to his constipation in hopes to help relieve it. He also states his primary care doctor is currently working him up for a possible diagnosis of Racine's disease. Related Data Home Medications Medication Instructions Recorded Confirmed Omeprazole Magnesium [Prilosec] 20 mg PO DAILY 09/18/17 11/08/22 alprazolam 1 mg tablet (Xanax) 1 - 2 mg PO DAILY PRN PRN 12/08/17 11/08/22 ibuprofen 800 mg tablet 800 mg PO TID PRN pain #20 tabs 01/13/21 11/08/22 Previous Rx's Medication Instructions Recorded ibuprofen 800 mg tablet 800 mg PO TID PRN pain #20 tabs 01/13/21 Allergies Allergy/AdvReac Type Severity Reaction Status Date / Time Sulfa (Sulfonamide Allergy Intermediate Unverified 11/08/22 05:18 Antibiotics) lactose Allergy Mild Unverified 11/08/22 05:18 General Stated Complaint: Abd Prob SEVERO: 3 Review of Systems All systems reviewed & are unremarkable except as noted in HPI and below Constitutional Constitutional: Reports as per HPI, Denies chills and Denies fever(s) Eyes Eyes: Denies blurry vision ENT Ears, Nose, Mouth, and Throat: Denies dizziness, Denies sore throat and Denies throat swelling Cardiovascular Cardiovascular: Denies chest pain and Denies dyspnea Respiratory Respiratory: Denies cough and Denies dyspnea Gastrointestinal Gastrointestinal: Reports abdominal pain, Reports constipation, Denies diarrhea, Reports nausea and Reports vomiting Genitourinary Genitourinary: Denies hematuria and Denies dysuria Musculoskeletal Musculoskeletal: Denies back pain and Denies numbness Integumentary/Breasts Skin/Breast: Denies lesions and Denies rash Neurologic Neurologic: Denies dizziness, Denies localized weakness and Denies numbness Allergic/Immunologic Allergic/Immunologic: Denies throat swelling PFSH All Active Problems (Updated 11/08/22 @ 13:39 by Jono Vasques MD) Abdominal discomfort (Acute) Constipation (Acute) Hypoglycemia (Acute) Distal radial fracture (Acute 01/13/21) LEFT Medical History ADHD Anxiety Autoimmune disease Dyspepsia Surgical History EGD - MAC (12/10/17) Repair, ACL Trigger Finger release Social History Smoking/Tobacco Use Status: Former Tobacco Use Quit Date: 11/22/20 Smoking risk assessment performed?: Yes Alcohol Intake: former Drug use: Daily Substance use type: marijuana Current gender identity: male Do you feel safe at home: Yes Do you feel safe in your relationship?: Yes Exam Const General: cooperative, healthy appearing and no acute distress HENMT Head: normal to inspection Face and sinus: normal facial exam Eyes General: appearance normal, both eyes and all related structures Pupils: PERRL EOM: EOM intact bilaterally Neck Neck: normal visual inspection and No submandibular swelling Lymphatic: no lymphadenopathy noted Chest Chest: normal inspection of the chest and no tenderness Resp Effort & Inspection: normal respiratory effort and able to speak in complete sentences Auscultation: clear to auscultation bilaterally Cardio Rate: regular rate Rhythm: regular rhythm GI Inspection: normal to inspection and non-distended Palpation: soft, not firm, no guarding, not rigid and tender (diffuse) Auscultation: hypoactive bowel sounds Skin General skin exam: no rashes or lesions noted Neuro General: patient alert, patient awake and patient oriented x3 Cognition: normal cognition Speech: speech normal Motor: muscle tone normal throughout Sensory Exam: no sensory deficits noted Extrem General: normal to inspection, full ROM, capillary refill normal, no calf tenderness bilaterally and no edema Psych Appearance: grossly normal Mental Status: mental status grossly normal Speech and Movement: speech and movement normal Affect: normal affect Course Vital Signs Vital signs: Vital Signs Temperature 97.9 F 11/08/22 05:14 Pulse 89 11/08/22 05:14 Respiratory Rate 16 11/08/22 05:14 Blood Pressure 116/85 11/08/22 05:14 Pulse Oximetry 100 11/08/22 05:14 Temperature 97.9 F 11/08/22 05:14 Temperature Source Temporal Artery Scan 11/08/22 05:14 Pulse 89 11/08/22 05:14 Respiratory Rate 16 11/08/22 05:14 Respiratory Effort 11/08/22 05:14 Blood Pressure 116/85 11/08/22 05:14 Blood Pressure Position Sitting 11/08/22 05:14 Pulse Oximetry 100 11/08/22 05:14 Oxygen Delivery Method Room Air 11/08/22 05:14 Oxygen Flow Rate 0 11/08/22 05:14 Pain Level 6 11/08/22 05:14 Sign Out Sign Out Data: Sign Out Comment: 6 months of constipation. Several days of abdominal pain, worsening constipation now vomiting this morning. Follow-up on CT imaging. If no acute findings on work-up and patient feels better, plan for discharged home with follow-up with PCP and gastroenterology at [facility]. Last updated by Missy Phoenix DO at 11/08/22 07:13
[2022-11-08 05:57] LABS: Abs Immature Grans 0.01 10^3/uL (0.0-0.06); Absolute Basophil Count 0.02 10^3/uL (0.0-0.2); Absolute Eosinophil Count 0.08 10^3/uL (0.0-0.7); Absolute Monocyte Count 0.41 10^3/uL (0.1-0.8); Absolute Neutrophil Count 3.15 10^3/uL (1.2-6.7); Basophils % 0.4; Eosinophils % 1.6; HCT 42.7 % (40.0-50.0); HGB 14.3 g/dL (13.5-17.5); Immature Grans % 0.2; Lymphocytes % 26.2; MCH 28.9 pg (27.0-33.0); MCHC 33.5 % (32.0-36.0); MCV 86 fL (80-95); Monocytes % 8.2; Neutrophils % 63.4; Platelet Count 193 10^3/uL (130-400); RBC 4.95 10^6/uL (4.36-5.78); RDW 12.5 % (11.8-14.1); RDW-SD 39.3 fL; WBC 4.97 10^3/uL (4.4-10.8)
[2022-11-08] MEDS: Ondansetron 4 MG/2 ML VIAL IVP (06:00)
[2022-11-08] MEDS: Normal Saline 1,000 ML 1000 ML IV ×2 (06:00→09:10)
[2022-11-08] MEDS: Ketorolac 30 MG/ML VIAL IVP (06:04)
[2022-11-08] MEDS: ACETAMINOPHEN 1,000 MG/100 ML BTL 400 MG IVPB (06:08)
[2022-11-08 06:13] LABS: ALT 21 U/L (16-63); AST 20 U/L (15-37); Albumin 4.3 g/dL (3.4-5.0); Alkaline Phosphatase 77 U/L (46-116); Anion Gap 12.1 mmol/L (3-11); BUN 24 mg/dL (7-18); CO2 24.9 mmol/L (21.0-32.0); CREATININE 1.3 mg/dL (0.70-1.30); Calcium 8.7 mg/dL (8.5-10.1); Chloride 102 mmol/L (98-107); Estimated GFR 74.85 (mL/min/1.73m2); Glucose 66 mg/dL (74-106); Lipase 40 U/L (73-393); Potassium 3.5 mmol/L (3.5-5.1); Sodium 139 mmol/L (136-145); Total Protein 7.1 g/dL (6.4-8.2)
[2022-11-08] MEDS: Omnipaque 350 MG/ML 100 ML BTL IJ (06:39)
[2022-11-08] MEDS: Normal Saline - Diluent 50 ML VIAL IJ (06:40)
--- NOTE | 2022-11-08 08:27 | DI.VRAD_ITS ---
PROCEDURE INFORMATION: Exam: CT Chest With Contrast; Diagnostic Exam date and time: 11/08/2022 6:30 AM Age: 32 years old Clinical indication: Abdominal pain; Right-sided and other: Lower chest/upper abd pain, vomiting, constipation; Additional info: Lower chest/upper abd pain, vomiting, constipation. R/O sbo TECHNIQUE: Imaging protocol: Diagnostic computed tomography of the chest with contrast. 3D rendering (Not supervised by radiologist): MIP and/or 3D reconstructed images were created by the technologist. Radiation optimization: All CT scans at this facility use at least one of these dose optimization techniques: automated exposure control; mA and/or kV adjustment per patient size (includes targeted exams where dose is matched to clinical indication); or iterative reconstruction. Contrast material: OMNI 350; Contrast volume: 100 ml; Contrast route: INTRAVENOUS (IV); COMPARISON: CR XR CHEST 2V PA LATERAL 09/19/2022 3:07 PM FINDINGS: Lungs: Unremarkable. No consolidation. No masses. Pleural spaces: Unremarkable. No pneumothorax. No pleural effusion. Heart: Unremarkable. No cardiomegaly. No pericardial effusion. Lymph nodes: Unremarkable. No enlarged lymph nodes. Vasculature: Unremarkable. No aortic aneurysm. Bones/joints: Unremarkable. No acute fracture. Soft tissues: Unremarkable. IMPRESSION: No acute findings. PROCEDURE INFORMATION: Exam: CT Abdomen And Pelvis With Contrast Exam date and time: 11/08/2022 6:30 AM Age: 32 years old Clinical indication: Abdominal pain; Right-sided and other: Lower chest/upper abd pain, vomiting, constipation; Additional info: Lower chest/upper abd pain, vomiting, constipation. R/O sbo TECHNIQUE: Imaging protocol: Computed tomography of the abdomen and pelvis with contrast. 3D rendering (Not supervised by radiologist): MIP and/or 3D reconstructed images were created by the technologist. Contrast material: OMNI 350; Contrast volume: 100 ml; Contrast route: INTRAVENOUS (IV); COMPARISON: CR XR ABDOMEN FLAT PLATE 07/16/2022 1:16 PM FINDINGS: Liver: Normal. No mass. Gallbladder and bile ducts: Normal. No calcified stones. No ductal dilation. Pancreas: Normal. No ductal dilation. Spleen: Normal. No splenomegaly. Adrenal glands: Normal. No mass. Kidneys and ureters: Normal. No hydronephrosis. Stomach and bowel: Unremarkable. No obstruction. No mucosal thickening. Appendix: No evidence of appendicitis. Intraperitoneal space: Unremarkable. No free air. No significant fluid collection. Vasculature: Unremarkable. No abdominal aortic aneurysm. Lymph nodes: Unremarkable. No enlarged lymph nodes. Urinary bladder: Unremarkable as visualized. Reproductive: Unremarkable as visualized. Bones/joints: Unremarkable. No acute fracture. Soft tissues: Unremarkable. IMPRESSION: No acute findings. Dictated and Authenticated by: Natalia Murphy MD. Ordering:EMILY Louis MD
[2022-11-08 09:06] VITALS: BP 106/68; PULSE 60; TEMP 36.7; O2SAT 99
--- NOTE | 2022-11-08 09:53 | W.EDPROG ---
Date of service: 11/08/22 Time of Service: 09:53 Medical Decision Making Care was signed out by Dr. Phoenix. Plan for follow-up CT and diagnostic labs. CT of the abdomen pelvis was interpreted by radiology: No acute process. Labs reviewed: No leukocytosis. Mild anion gap acidosis initially. Patient was given 2 L of crystalloid. Patient reassessed and improved. All results were discussed with the patient. Usual customary discharge instructions were reviewed. Patient understands importance of timely follow-up with his primary care physician. He was encouraged to return immediately should any worsening or new concerning symptoms. Lab Data Lab results reviewed: Yes I reviewed the patient's lab results. Labs: Laboratory Tests Range/Units 11/08/22 11/08/22 05:55 05:55 WBC (4.4-10.8) 10^3/uL 4.97 RBC (4.36-5.78) 10^6/uL 4.95 Hgb (13.5-17.5) g/dL 14.3 Hct (40.0-50.0) % 42.7 MCV (80-95) fL 86 MCH (27.0-33.0) pg 28.9 MCHC (32.0-36.0) % 33.5 RDW (11.8-14.1) % 12.5 Plt Count (130-400) 10^3/uL 193 MPV (8.0-11.0) fL 10.0 Immature Gran % 0.2 Neutrophils % 63.4 Lymphocytes % 26.2 Monocytes % 8.2 Eosinophils % 1.6 Basophils % 0.4 Nucleated RBC % (0.0-0.3) % 0.0 Absolute Neutrophils (1.2-6.7) 10^3/uL 3.15 Absolute Lymphocytes (1.2-3.4) 10^3/uL 1.30 Absolute Monocytes (0.1-0.8) 10^3/uL 0.41 Absolute Eosinophils (0.0-0.7) 10^3/uL 0.08 Absolute Basophils (0.0-0.2) 10^3/uL 0.02 Sodium (136-145) mmol/L 139 Potassium (3.5-5.1) mmol/L 3.5 Chloride (98-107) mmol/L 102 Carbon Dioxide (21.0-32.0) mmol/L 24.9 Anion Gap (3-11) mmol/L 12.1 H BUN (7-18) mg/dL 24 H Creatinine (0.70-1.30) mg/dL 1.3 Est GFR (CKD-EPI 2020) (mL/min/1.73m2) 74.85 Glucose (74-106) mg/dL 66 L Calcium (8.5-10.1) mg/dL 8.7 Total Bilirubin (0.2-1.0) mg/dL 1.0 AST (15-37) U/L 20 ALT (16-63) U/L 21 Alkaline Phosphatase (46-116) U/L 77 Total Protein (6.4-8.2) g/dL 7.1 Albumin (3.4-5.0) g/dL 4.3 Lipase (73-393) U/L 40 Sign Out Sign Out Data: Sign Out Comment: 6 months of constipation. Several days of abdominal pain, worsening constipation now vomiting this morning. Follow-up on CT imaging. If no acute findings on work-up and patient feels better, plan for discharged home with follow-up with PCP and gastroenterology at [facility]. Last updated by Missy Phoenix DO at 11/08/22 07:13 Discharge Plan Disposition Patient Disposition: Home Condition: Stable Discharge Details Clinical Impression: Abdominal discomfort, Constipation Primary Care Provider: Anaya,[facility] ED Provider: Jono Vasques Home Meds and New Rx's Prescriptions: Continued Omeprazole Magnesium [Prilosec] 10 MG SUSPDR.PKT 20 mg PO DAILY alprazolam [Xanax] 1 MG tablet 1 - 2 mg PO DAILY PRN PRN ibuprofen 800 mg tablet 800 mg PO TID PRN (Reason: pain) Qty: 20 0RF Discharge Instructions Instructions: Constipation (ED) Additional Instructions: I recommend you continue to use [id number] stool softeners. CT scan of your abdomen and pelvis today did not reveal any acute abnormality. Please contact your primary care physician to arrange follow-up. Return to the ER immediately for any worsening or new concerning symptoms.
[2022-11-08 10:02] VITALS: BP 113/60; PULSE 93; TEMP 36.7; O2SAT 100
[2022-11-08] MEDS: DEXTROSE 10%-WATER 500 ML 50 ML IV (10:31)
[2022-11-08 10:33] VITALS: BP 115/66; PULSE 52; RESP 15; O2SAT 100
[2022-11-08] MEDS: Dextrose 50%-Water 25 GM/50 ML SYR IVP (12:39)
--- NOTE | 2022-11-08 13:35 | ED.PROG_ITS ---
Date of service: 11/08/22 Time of Service: 13:35 Medical Decision Making Care was signed out by Dr. Phoenix plan to follow-up on CT of the abdomen pelvis, follow-up on labs and reassess patient for disposition. CT of the abdomen pelvis was interpreted by radiology: Labs reviewed and nondiagnostic other than hypoglycemia. Patient received 2 L of crystalloid. Patient was initially started on D10 and then given push of D50. D 25 currently on backorder not available. Patient was observed and reassessed and blood sugar stable and within normal limits. I called and spoke with patient's PCP, Dr. Lunsford, reviewed ED presentation and course, he will ensure timely follow-up and was appreciative of the evaluation today. Lab Data Lab results reviewed: Yes I reviewed the patient's lab results. Labs: Laboratory Tests Range/Units 11/08/22 11/08/22 05:55 05:55 WBC (4.4-10.8) 10^3/uL 4.97 RBC (4.36-5.78) 10^6/uL 4.95 Hgb (13.5-17.5) g/dL 14.3 Hct (40.0-50.0) % 42.7 MCV (80-95) fL 86 MCH (27.0-33.0) pg 28.9 MCHC (32.0-36.0) % 33.5 RDW (11.8-14.1) % 12.5 Plt Count (130-400) 10^3/uL 193 MPV (8.0-11.0) fL 10.0 Immature Gran % 0.2 Neutrophils % 63.4 Lymphocytes % 26.2 Monocytes % 8.2 Eosinophils % 1.6 Basophils % 0.4 Nucleated RBC % (0.0-0.3) % 0.0 Absolute Neutrophils (1.2-6.7) 10^3/uL 3.15 Absolute Lymphocytes (1.2-3.4) 10^3/uL 1.30 Absolute Monocytes (0.1-0.8) 10^3/uL 0.41 Absolute Eosinophils (0.0-0.7) 10^3/uL 0.08 Absolute Basophils (0.0-0.2) 10^3/uL 0.02 Sodium (136-145) mmol/L 139 Potassium (3.5-5.1) mmol/L 3.5 Chloride (98-107) mmol/L 102 Carbon Dioxide (21.0-32.0) mmol/L 24.9 Anion Gap (3-11) mmol/L 12.1 H BUN (7-18) mg/dL 24 H Creatinine (0.70-1.30) mg/dL 1.3 Est GFR (CKD-EPI 2020) (mL/min/1.73m2) 74.85 Glucose (74-106) mg/dL 66 L Calcium (8.5-10.1) mg/dL 8.7 Total Bilirubin (0.2-1.0) mg/dL 1.0 AST (15-37) U/L 20 ALT (16-63) U/L 21 Alkaline Phosphatase (46-116) U/L 77 Total Protein (6.4-8.2) g/dL 7.1 Albumin (3.4-5.0) g/dL 4.3 Lipase (73-393) U/L 40 Sign Out Sign Out Data: Sign Out Comment: 6 months of constipation. Several days of abdominal pain, worsening constipation now vomiting this morning. Follow-up on CT imaging. If no acute findings on work-up and patient feels better, plan for discharged home with follow-up with PCP and gastroenterology at [facility]. Last updated by Missy Phoenix DO at 11/08/22 07:13 Discharge Plan Disposition Patient Disposition: Home Condition: Stable Discharge Details Clinical Impression: Abdominal discomfort, Constipation, Hypoglycemia Primary Care Provider: ,Local ED Provider: Jono Vasques Home Meds and New Rx's Prescriptions: Continued Omeprazole Magnesium [Prilosec] 10 MG SUSPDR.PKT 20 mg PO DAILY alprazolam [Xanax] 1 MG tablet 1 - 2 mg PO DAILY PRN PRN ibuprofen 800 mg tablet 800 mg PO TID PRN (Reason: pain) Qty: 20 0RF Discharge Instructions Instructions: Non-diabetic Hypoglycemia (ED), Abdominal Pain (ED) Additional Instructions: CT scan of your abdomen and pelvis today did not reveal any acute abnormality. There was no constipation noted. You had an episode of hypoglycemia (low blood sugar). Please be sure to maintain a healthy diet. Please contact your primary care physician to arrange follow-up. Return to the ER immediately for any worsening or new concerning symptoms.
[2022-11-08 13:40] VITALS: BP 110/70; PULSE 60; RESP 16; O2SAT 99
== END 2022-11-08 13:57 | disposition home or self-care (01) ==
PROVIDERS: Physician Assistant; Emergency Provider Student in an Organized Health Care Education/Training Program
DX: K59.00 Constipation, unspecified (principal); E16.2 Hypoglycemia, unspecified; E87.20 Acidosis, unspecified
CPT/HCPCS: 74177; 80053; 83690; 96361; 96365; 96366; 96375; 99285; 71260; 85025; 99284; J0131; J1885; J2405; J3490

== ENCOUNTER 2022-11-12 02:36 | Outpatient (RCR) | payer MEDICAID, SELFPAY ==
[2022-11-12] MEDS: Cosyntropin 0.25 MG VIAL IM (07:02)
[2022-11-12] MEDS: Normal Saline Flush 10 ML SYR IVP (08:06)
[2022-11-12 18:15] LABS: Cortisol (Baseline) 17 ug/dL (4-23)
== END 2022-12-03 23:59 | disposition home or self-care (01) ==
LOC: INF 02:36
PROVIDERS: Family Medicine; Visit Provider Family Medicine
DX: Z13.29 Encounter for screening for other suspected endocrine disorder (principal)
CPT/HCPCS: 36415; 80400; 82533; 87206; 96372; 96374; J0834

== ENCOUNTER 2022-12-13 13:20 | Outpatient (CLI) | payer MEDICAID, SELFPAY ==
--- NOTE | 2022-12-13 | DI.RAD_ITS ---
Exam(s) XR SHOULDER RT COMPLETE 2+V EXAM: XR SHOULDER RT COMPLETE 2+V CLINICAL HISTORY: TRAUMA AFTER FALL, ? DISLOCATION. TECHNIQUE: 2D digital imaging was performed of the right shoulder. Four images were obtained. AP, Grashey, Y-view and axillary views were obtained. COMPARISON: CR RIGHT SHOULDER COMPLETE from 11/12/2009 CR CHEST 2 VIEWS PA,LAT from 07/05/2012 CR XR CHEST 2V PA LATERAL from 09/19/2022 FINDINGS: BONES: No acute fracture is present. No bony destructive lesion is seen. JOINTS: No dislocation present. There has been no change in alignment of the acromioclavicular joint compared to prior examinations. SOFT TISSUE: Normal. IMPRESSION: No acute abnormality. DATA REPOSITORY: RADIATION DOSE DELIVERED:
== END 2022-12-13 13:40 ==
LOC: DI 13:21
PROVIDERS: Visit Provider Family Medicine
DX: S49.91XA Unspecified injury of right shoulder and upper arm, initial encounter (principal); W19.XXXA Unspecified fall, initial encounter
CPT/HCPCS: 73030

== ENCOUNTER 2023-04-08 06:42 | Day surgery (SDC) | payer MEDICAID, SELFPAY ==
--- NOTE | 2023-04-08 06:56 | W.ANESPRE ---
General Info Date of Service Date Performed: 04/08/23 Height: 5 ft 11 in Weight: 78.018 kg Body Mass Index (BMI): 24.0 Surgical Procedure: Operation Date: 04/08/23 08:20 Proposed Procedure Side Surgeon p Colonoscopy/Gastroscopy Jesus Martinez MD Meds Allergies and Home Medications Allergies Allergy/AdvReac Type Severity Reaction Status Date / Time Sulfa (Sulfonamide Allergy Intermediate as a child Unverified 04/08/23 07:11 Antibiotics) lactose AdvReac Mild Pt. states Unverified 04/08/23 07:11 acid reflux upset stomach, skin stuff Home Medication Medication Instructions Recorded alprazolam 1 mg tablet (Xanax) 1 - 2 mg PO DAILY PRN PRN 12/08/17 ibuprofen 800 mg tablet 800 mg PO TID PRN pain #20 tabs 01/13/21 bisacodyl 5 mg tablet,delayed 5 mg PO ONCE colonscopy bowel prep 02/27/23 release (Dulcolax (bisacodyl)) #4 tabs polyethylene glycol 3350 17 238 g PO ONCE colonoscopy prep 02/27/23 gram/dose oral powder #238 grams cyanocobalamin (vitamin B-12) 2,000 mcg DAILY 04/08/23 1,000 mcg/mL injection syringe Current Visit Medications: Current Medications Generic Name Dose Route Start Last Admin Trade Name Freq PRN Reason Stop Dose Admin Ringer's Solution 1,000 mls @ 80 mls/hr 04/08/23 06:00 IV 05/07/23 23:59 INFUSION ALDA IV Miscellaneous Supplies 1 each 04/08/23 06:00 Iv Access IV 05/07/23 23:59 DIRECTED ALDA Sodium Chloride 0 ml 04/08/23 06:00 Normal Saline Flush 10 Ml Syr IV 05/07/23 23:59 PRN PRN Sodium Chloride 0 ml 04/08/23 06:00 Normal Saline 10 Ml Vial IJ 05/07/23 23:59 DIRECTED PRN Sterile Water 0 ml 04/08/23 06:00 Water,Injection,Sterile 10 Ml Vial IJ 05/07/23 23:59 DIRECTED PRN PFSH Active Problems Active Problems: Problem Status Onset Code Distal radial fracture 01/13/21 S52.509A Medical History Medical History (Updated 04/08/23 @ 08:36 by Jesus Martinez MD) ADHD Anxiety Autoimmune disease Dyspepsia Surgical History Surgical History (Updated 04/08/23 @ 07:20 by Sussy Garcia RN) EGD - MAC (12/10/17) H/O colonoscopy Repair, ACL Trigger Finger release Tobacco Smoking/Tobacco Use Status: Former Tobacco Use Alcohol Alcohol Intake: former Substance Use Substance use: Daily Substance use type: marijuana Vital Signs and Lab Results Lab Results Blood Type / Crossmatch: No Data to Display Complete Blood Count: No Data to Display Complete Metabolic Panel: No Data to Display Liver Function Panel: No Data to Display Coagulation Panel: No Data to Display Cardiac Panel: No Data to Display Arterial Blood Gas: No Data to Display Venous Blood Gas: No Data to Display Pancreas Panel: No Data to Display Thyroid Panel: No Data to Display Infectious Disease: No Data to Display Blood Cultures: No Data to Display Toxicology Panel: No Data to Display Anesthesia Assessment and Plan Anesthesia History Personal History: No History of Anesthesia Complications Family History: No Family History of Anesthesia Complications Exercise Tolerance Exercise Tolerance: Metabolic Equivalents>4 Pertinent Negatives Pertinent Negatives: No Symptoms of GERD, No Major Cardiovascular Symptoms or Complaints, No Major Pulmonary Symptoms or Complaints and No History of CVA/TIA Cardiac & Pulmonary Exam Cardiac Exam: Normal S1/S2 Heart Sounds Pulmonary Exam: Clear Bilateral Breath Sounds Implantable Cardiac Device Does patient have a Pacemaker or an ICD?: No Airway Exam Known Difficult Airway: No Mallampati Class: 2 Mouth Opening: Normal (> 3cm) Thyromental Distance: Greater than 3 cm Neck Range of Motion: Full ROM Neck Circumference: Normal Teeth Condition: Normal Dentition ASA Classification ASA Score: ASA 2 Emergency Case?: No NPO Status NPO Status: NPO Clears >2 hours, Solids >8 hours Anesthesia Plan Resuscitation Status: Full Code Anesthesia Technique: General Anesthesia Airway Planned: Natural Airway Monitors Used: Standard Monitors
[2023-04-08 07:00] VITALS: BP 116/74; PULSE 73; RESP 16; TEMP 36.5; O2SAT 98
[2023-04-08] MEDS: Lactated Ringers 1,000 ML 80 ML IV (07:30)
--- NOTE | 2023-04-08 08:12 | SCONE_ITS ---
Date of service: 04/08/23 Time of Service: 08:05 Assessment and Plan Assessment and plan (1) Abdominal pain in male: Status: Acute Assessment and plan: 32-year-old man who has chronic, episodic abdominal discomfort but also has bowel habit changes. Definitive diagnosis of his mucosa visually as well as with biopsy will be helpful in ruling out a number of the differential diagnoses that could contribute. In particular we can rule out H. pylori, GI cancers, celiac disease, inflammatory conditions, to name a few. I did have a detailed discussion with him about the role of endoscopy and colonoscopy. These procedures are certainly not going to make him feel any better. He is aware of that. I also discussed the significant risks of these procedures and that risk being mostly nondiagnostic results. That is to say, all of his biopsy results and visual findings might be completely normal. It should be helpful in ruling out conditions but it may not find an actual disease entity to explain what is going on with him. Overall plan: 1. EGD with biopsy 2. Colonoscopy with biopsy History of Present Illness Narrative: 32-year-old man has a history of epigastric abdominal discomfort, bowel habit changes, chronic diarrhea and constipation as well as chronic acid reflux. He denies a family history of GI (colon or stomach) cancers. He has never had any intra-abdominal surgery. He has had acid reflux issues for many years. The abdominal and GI issues are more recent and he thinks over the last year to year and a half they have worsened. He is worried that he has something called Samson's esophagus. He did have an upper endoscopy and a colonoscopy about a year ago at an outside hospital. He never heard any results nor did he get any feedback from these procedures. Also getting work-up at [facility] for gallbladder removal. He says he was told that his gallbladder should be removed. He never ended up following through with that however because he said he did not understand all of the reasons for getting it taken out. He wonders if he has celiac disease or inflammatory bowel disease. Him and his PCP are hopeful that we can take biopsies during his procedures today. PFSH All Active Problems (Updated 04/08/23 @ 08:36 by Jesus Martinez MD) Abdominal pain in male (Acute) Distal radial fracture (Acute 01/13/21) LEFT Medical History (Updated 04/08/23 @ 08:36 by Jesus Martinez MD) ADHD Anxiety Autoimmune disease Dyspepsia Surgical History (Updated 04/08/23 @ 07:20 by Sussy Garcia RN) EGD - MAC (12/10/17) H/O colonoscopy Repair, ACL Trigger Finger release Social History Smoking/Tobacco Use Status: Former Tobacco Use Quit Date: 11/22/20 Smoking risk assessment performed?: Yes Alcohol Intake: former Drug use: Daily Substance use type: marijuana Details: marijuana last used t-3, smoke Current gender identity: male Do you feel safe at home: Yes Do you feel safe in your relationship?: Yes Exam Narrative Exam Narrative: General: Nontoxic, comfortable and interactive Neuro: Alert and oriented x3 Psych: Appropriate mood and affect, good insight and understanding into his conditions Chest: Nonlabored breathing, no wheezing Heart: Regular Results Last Vital Signs Temp 97.7 F 04/08/23 07:00 Pulse 73 04/08/23 07:00 Resp 16 04/08/23 07:00 BP 116/74 04/08/23 07:00 Pulse Ox 98 04/08/23 07:00
--- NOTE | 2023-04-08 08:52 | STOM_PTH ---
PATIENT: Raymundo Pierce LOC: [facility] U#:[id number] AGE/SX: 32/M ROOM: RE04/08/[address]: Jesus Martinez : 1990 BED: DIS: 04/08/2023 SPEC #: [id number] RECD: 04/08/23 12:27 STATUS: ZAIDA RE #: [id number] DAILY: 04/08/23 08:[address]: Jesus Martinez DEPT: Surgical Specimen RECD BY: Laura Rose ENTERED: 04/08/23 12:30 SP TYPE: STOMACH OTHR DR: No Local Tissues: 1 - BIOPSY BOWEL 2 - STOMACH BIOPSY 3 - STOMACH BIOPSY 4 - STOMACH BIOPSY 5 - ESOPHAGUS BIOPSY 6 - ESOPHAGUS BIOPSY 7 - BIOPSY BOWEL 8 - BIOPSY BOWEL Procedures: GROSS AND MICRO LEVEL 4 Comments: [id number]
[2023-04-08 09:22] VITALS: BP 102/70; PULSE 73; RESP 16; TEMP 36.3; O2SAT 98
--- NOTE | 2023-04-08 09:36 | COLE_ITS ---
Date of service: 04/08/23 Time of Service: 09:10 Colonoscopy Report Procedure Description: Procedures performed: 1. Colonoscopy with cold forceps biopsies Preoperative diagnosis: Abdominal discomfort, chronic diarrhea Postoperative diagnosis: Normal terminal ileum, normal colon, normal rectum Surgeon: Jean Martinez Anesthesia: Paul Indication for procedure: 32-year-old man with bowel habit changes and chronic abdominal discomfort. No family history of colon cancer or IBD. Findings: Terminal ileum was normal.? There was no evidence in the mucosa of the colon or ileum to suggest chronic inflammation.? Cold forceps biopsies were taken from both of these randomly.? The colon mucosa appeared completely normal. There is no diverticulosis. There is no evidence of inflammation anywhere. There were no polyps. I took random biopsies of the colonic mucosa from the ce cum all the way to the rectum. The rectum itself also appeared completely normal. There is no hemorrhoidal disease and no inflammation. Surveillance/follow-up recommendations: Pending path results being normal - colorectal cancer surveillance/screening can be done at the age of 45. He may need to see GI in consultation if his symptoms persist. Complications: None Blood loss: Minimal Prep: Excellent Procedure in detail: Written consent was obtained from the patient who was in agreement with the risks, benefits and indications of the procedure.? The patient was turned from upper endoscopy (see separate procedure note) and anesthesia was continued and the patient was kept in the same position I started the colonoscopy portion of the procedure.? Digital rectal exam and visual examination was performed.? Normal sphincter tone.? A well?lubricated colonoscope was advanced without difficulty all the way to the cecum identified by the ileocecal valve, and triangular folds and appendiceal orifice.? Terminal ileum was normal.? It was then slowly withdrawn.?? Retroflexion was performed in the rectum.? The findings/interventions are noted above. The scope was then removed and the patient tolerated the procedure well and was then taken back to the PACU in hemodynamically stable condition
--- NOTE | 2023-04-08 09:37 | W.PM.ENDDOP ---
Date of service: 04/08/23 Time of Service: 09:06 Endoscopy Report PROCEDURE DESCRIPTION: Procedures performed: 1.? Esophagogastroduodenoscopy with cold forceps biopsies Preoperative diagnosis: Bowel habit changes, abdominal pain, GERD Postoperative diagnosis: Gastritis, small(1cm) type I sliding hiatal hernia, LA grade A esophagitis Surgeon: Jean Martinez Anesthesia: Paul Indication for procedure: 32-year-old man with chronic abdominal discomfort, chronic GERD and chronic on/off diarrhea and constipation. He has never had biopsies of his foregut or colon per his report. There is no family history of colon cancer or IBD. Findings: - D3, D2 and D1 - normal - no inflammation or ulcers -multiple biopsies were taken x4 to rule out celiac disease - Pylorus - patent.? No bile reflux visualized during procedure. - Antrum - looks mildly inflamed and with chronic appeance - biopsies taken to rule out occult H. pylori - Stomach Body - chronic gastritis/gastropathy appearance.? Biopsies taken to confirm.? - Fundus -chronic gastritis appearance.? No polyps. Biopsies again taken here to rule out occult H. pylori. - Hiatus - Retroflexion showed a small type I sliding hiatal hernia (1-2 cm slide) - Esophagus -there are 2 mucosal breaks that are about 5 mm in height. These are consistent with LA grade A esophagitis. No stricture and no visible evidence of Samson's.? The mid and proximal esophagus appeared normal. I took cold forceps biopsies of the distal esophagus and separately, of the midesophagus. - Cords/hypopharynx - Normal OVERALL - While some mild?appearing inflammation was seen, it is not felt that this was severe enough to explain his symptoms. Biopsies were taken to assess microscopic conditions. H. pylori will be ruled in or out and that could be a contributor potentially. No evidence of Samson's esophagus however some mild esophagitis is present. Surveillance/follow-up recommendations: Pending biopsy results.??Surveillance unlikely to be necessary Complications: None Blood loss: Minimal Specimens:? YES Procedure in detail: Written consent was obtained from the patient who was in agreement with the risks, benefits and indications of the procedure.? We went to the endoscopy suite and laid the patient in left lateral decubitus position.? Anesthesia was administered which was tolerated well.? A timeout was performed and when we are all in agreement we began the procedure. A well?lubricated endoscope was advanced without difficulty down the esophagus, into the stomach, through a patent pylorus and into the duodenum.? It was then slowly pulled back with findings noted above. The scope was then removed and the patient tolerated the procedure well and was turned for the colonoscopy portion of the procedure (see separate procedure note).
[2023-04-08 09:38] VITALS: BMI 24.0
--- NOTE | 2023-04-08 09:38 | W.ANESPOSTOP ---
Postoperative Evaluation Date, Time and Location Date Performed: 04/08/23 Time Performed: 09:38 Patient Location: Day Surgery Unit Vital Signs Most Recent Imported Vital Signs: Most Recent Vital Signs Temp Pulse Resp BP Pulse Ox 36.3 C L 73 16 102/70 98 04/08/23 09:22 04/08/23 09:22 04/08/23 09:22 04/08/23 09:22 04/08/23 09:22 Pain Score Most Recent Pain Score: Most Recent Pain Score Pain Level 0 04/08/23 09:22 Assessment Mental Status: Awake (Alert & Oriented to Patient Baseline) Airway and Respiratory Function: Patent airway with normal (patient baseline) respiratory exam Cardiovascular Function: Hemodynamically Stable Hydration Status: Adequately Hydrated Nausea & Vomiting: No Nausea or Vomiting Pain: Pt. Denies Any Pain Peripheral Nerve Block: Patient did not receive a nerve block Postoperative Comments:: All questions answered. Patient doing well, patient appropriate for discharge.
[2023-04-08 09:57] VITALS: BP 113/73; PULSE 66; RESP 16; TEMP 36.3; O2SAT 100
== END 2023-04-08 10:21 | disposition home or self-care (01) ==
PROVIDERS: Visit Provider Student in an Organized Health Care Education/Training Program
PROC: (CPT 45380; principal; 2023-04-08 08:15)
DX: R10.9 Unspecified abdominal pain (principal); R19.4 Change in bowel habit; K52.9 Noninfective gastroenteritis and colitis, unspecified; K29.70 Gastritis, unspecified, without bleeding; K44.9 Diaphragmatic hernia without obstruction or gangrene; K21.00 Gastro-esophageal reflux disease with esophagitis, without bleeding
CPT/HCPCS: 45380; 43239; 88305

== ENCOUNTER 2023-04-29 00:54 | Outpatient (CLI) | payer MEDICAID, SELFPAY ==
--- NOTE | 2023-04-29 09:16 | DI.RAD_ITS ---
Exam(s) XR SHOULDER RT COMPLETE 2+V EXAM: XR SHOULDER RT COMPLETE 2+V CLINICAL HISTORY: TRAUMA AFTER FALL, AC JT SEPARATION, S49.90XA. TECHNIQUE: 2D digital imaging was performed. Five views. COMPARISON: CR XR SHOULDER RT COMPLETE 2+V from 12/13/2022 FINDINGS: BONES: No acute fracture is present. No bony destructive lesion is seen. JOINTS: The AC joint is now widening. The end of the clavicle is slightly elevated. Glenohumeral vega int appears normal. SOFT TISSUE: Normal. IMPRESSION: Acromioclavicular joint separation. DATA REPOSITORY: RADIATION DOSE DELIVERED:
== END 2023-04-29 01:14 ==
LOC: DI 00:54
PROVIDERS: Visit Provider Family Medicine
DX: S43.101A Unspecified dislocation of right acromioclavicular joint, initial encounter (principal); W19.XXXA Unspecified fall, initial encounter
CPT/HCPCS: 73030

== ENCOUNTER 2023-04-29 09:26 | Outpatient (CLI) | payer MEDICAID, SELFPAY ==
[2023-04-29 09:48] LABS: Abs Immature Grans 0.01 10^3/uL (0.0-0.06); Absolute Basophil Count 0.02 10^3/uL (0.0-0.2); Absolute Eosinophil Count 0.13 10^3/uL (0.0-0.7); Absolute Lymphocyte Count 1.55 10^3/uL (1.2-3.4); Absolute Neutrophil Count 2.98 10^3/uL (1.2-6.7); Basophils % 0.4; Eosinophils % 2.5; HCT 44.9 % (40.0-50.0); HGB 14.8 g/dL (13.5-17.5); Immature Grans % 0.2; Lymphocytes % 29.9; MCH 28.5 pg (27.0-33.0); MCV 87 fL (80-95); MPV 9.7 fL (8.0-11.0); Monocytes % 9.6; Neutrophils % 57.4; Platelet Count 206 10^3/uL (130-400); RBC 5.19 10^6/uL (4.36-5.78); RDW 12.4 % (11.8-14.1); RDW-SD 39.4 fL; WBC 5.19 10^3/uL (4.4-10.8)
[2023-04-29 10:34] LABS: Hemoglobin A1C 5.4 % (<5.7)
[2023-04-29 10:59] LABS: ALT 27 U/L (16-63); AST 13 U/L (15-37); Alkaline Phosphatase 73 U/L (46-116); Anion Gap 6.9 mmol/L (3-11); BUN 17 mg/dL (7-18); Bilirubin, Total 0.3 mg/dL (0.2-1.0); CO2 30.1 mmol/L (21.0-32.0); CREATININE 1.1 mg/dL (0.70-1.30); Calcium 8.7 mg/dL (8.5-10.1); Calculated LDL 85 mg/dL (<100); Chloride 105 mmol/L (98-107); Cholesterol 159 mg/dL (<200); Estimated GFR 91.47 (mL/min/1.73m2); Glucose 93 mg/dL (74-106); HDL Cholesterol 55 mg/dL (40-60); Potassium 4.8 mmol/L (3.5-5.1); Sodium 142 mmol/L (136-145); TSH 1.36 uIU/mL (0.36-3.74); Total Protein 7.3 g/dL (6.4-8.2); Triglyceride 99 mg/dL (<150)
[2023-04-29 11:01] LABS: Vitamin D 25 Total 38.4 ng/mL (30-100)
[2023-04-29 11:04] LABS: Vitamin B12 > 2000 pg/mL (193-986)
[2023-05-04 10:28] LABS: Testosterone, Free 9.47 ng/dL (4.85-19.0); Testosterone, Total 357 ng/dL (240-950)
== END 2023-04-29 09:27 | disposition home or self-care (01) ==
LOC: LBO 09:27
PROVIDERS: Visit Provider Family Medicine
DX: Z13.1 Encounter for screening for diabetes mellitus (principal); Z13.220 Encounter for screening for lipoid disorders; R53.83 Other fatigue; R63.5 Abnormal weight gain
CPT/HCPCS: 36415; 80053; 80061; 82306; 84402; 84403; 82607; 82746; 83036; 84443; 85025

== ENCOUNTER 2023-06-27 08:17 | Emergency (ER) | payer MEDICAID, SELFPAY ==
[2023-06-27 08:31] VITALS: BP 119/73; PULSE 80; RESP 14; O2SAT 97
--- NOTE | 2023-06-27 09:00 | DI.CT_ITS ---
Exam(s) CT ABDOMEN PELVIS W EXAM: CT ABDOMEN PELVIS W CLINICAL HISTORY: Abdominal pain, diarrhea TECHNIQUE: Imaging Protocol: Axial computed tomography images with coronal and sagittal reformatted images were created and reviewed CONTRAST MATERIAL: Intravenous: Omnipaque 350 Contrast volume:100 mL Oral: No COMPARISON: CT CT CHEST/ABD/PEL W from 11/08/2022 FINDINGS: ABDOMEN: Lung Bases: Normal where visualized. Liver: Normal density. No measurable mass. Portal, Superior Mesenteric, and Splenic Veins: Unremarkable. Gallbladder and Biliary Tract: No radiodense calculus or dilation. Pancreas: Normal density, no abnormal calcifications or inflammatory process. Spleen: Normal. Adrenals: No masses seen. Kidneys: Normal size, contour and axis. No radiodense stones or obstructive uropathy. No masses seen. Abdominal Aorta: Abdominal portion non-dilated. Bowel: There is diffuse moderate wall thickening of the entire colon. There is no evidence of bowel obstruction. The small bowel is unremarkable. Appendix is unremarkable. Peritoneal Cavity: No ascites, collection or mesenteric inflammatory response. No free air. Lymph Nodes: Within normal limits. Bones: Within normal limits for the patient's age. Soft Tissues: There is a small fat containing umbilical hernia. PELVIS: Bladder: Symmetric distention, no gross wall thickening. Reproductive Organs: Unremarkable as visualized. Lymph Nodes: Within normal limits. Bones: Within normal limits for the patient's age. IMPRESSION: 1. Diffuse moderate bowel wall thickening involving the entire colon. This may represent a inflammat ory bowel disease. Infection should also be considered. 2. Findings were discussed with Kalen Garsia at 12 p.m. on 06/27/2023. Unexpected findings RADIATION DOSE DELIVERED: 784.26mGy.cm Total DLP DATA REPOSITORY: All CT scans at this facility are submitted to the National Radiology Data Registry (NRDR) Dose Index Registry (DIR) with the [employer] ([employer]). RADIATION OPTIMIZATION: All CT scans at this facility use at least one of these dose optimization te chniques: automated exposure control; mA and/or kV adjustment per patient size (includes targeted exa ms where dose is matched to clinical indication); or iterative reconstruction.
[2023-06-27 09:15] LABS: Lactate 0.7 mmol/L (0.6-1.4)
[2023-06-27 09:20] LABS: HCT 45.1 % (40.0-50.0); HGB 15.2 g/dL (13.5-17.5); MCH 28.3 pg (27.0-33.0); MCHC 33.7 % (32.0-36.0); MCV 84 fL (80-95); MPV 10.5 fL (8.0-11.0); Platelet Count 205 10^3/uL (130-400); RBC 5.38 10^6/uL (4.36-5.78); RDW 12.7 % (11.8-14.1); RDW-SD 38.8 fL; WBC 9.15 10^3/uL (4.4-10.8)
[2023-06-27] MEDS: Normal Saline 1,000 ML 1000 ML IV (09:20)
--- NOTE | 2023-06-27 09:20 | W.ED.GENAD ---
Discharge Plan Disposition Patient Disposition: Home Discharge Details Clinical Impression: Diarrhea Primary Care Provider: Howard Lunsford ED Provider: Kalen Garsia Home Meds and New Rx's Prescriptions: New prednisone 20 mg tablet 60 mg PO DAILY 4 Days Qty: 12 0RF azithromycin 500 mg tablet 500 mg PO DAILY 3 Days Qty: 3 0RF Continued cyanocobalamin (vitamin B-12) 1,000 mcg/mL Syringe 2,000 mcg DAILY alprazolam [Xanax] 1 MG tablet 1 - 2 mg PO DAILY PRN PRN ibuprofen 800 mg tablet 800 mg PO TID PRN (Reason: pain) Qty: 20 0RF Held polyethylene glycol 3350 17 gram/dose powder 238 g PO ONCE Qty: 238 0RF Hold Instructions: Until resolution of diarrhea Rx Instructions: take per colonoscopy instructions bisacodyl [Dulcolax (bisacodyl)] 5 mg tablet,delayed release (DR/EC) 5 mg PO ONCE Qty: 4 0RF Hold Instructions: Until resolution of diarrhea Rx Instructions: take per colonoscopy instructions Discharge Instructions Instructions: Acute Diarrhea (ED) Additional Instructions: You may slowly advance your diet as tolerated. You have been placed upon steroids will hopefully reduce what I suspect is a inflammatory bowel disease. It is very important that you follow-up with your primary care provider for reassessment and keep your appointment with your specialist. If you have any new or significant worsening symptoms please return to the emergency department for reassessment. Referrals: Howard Lunsford [Primary Care Provider] - 3 days Discharge Data Discharge Date/Time-TO BE ENTERED AT DEPARTURE: 06/27/23 15:44 Medical Decision Making Patient presenting to the emergency department for chief complaint of abdominal pain and diarrhea for the past 4 days. Patient states that he has ongoing issues with constipation and 5 to 6 days ago he started a bowel prep cleanse using MiraLAX and [id number] medications. Since then he has persisted with having diarrhea in spite of stopping the medications, and has noted some blood in the stool. Patient states some chills but denies any fever denies hemorrhoids, does state that he has long ongoing GI issues which she has had colonoscopies for an evaluation and believes he has a follow-up with GI at tertiary care center in the next 1 to 2 weeks. Physical exam shows some epigastric and right-sided abdominal tenderness otherwise unremarkable exam. Patient has completely stable vital signs. We will plan on checking labs including inflammatory markers, will attempt stool specimen, and CT imaging. Pending results we will give patient IV fluids Reviewed patient's labs and CBC is overall nondiagnostic, slightly low lymphocytes and elevated monocytes otherwise all other values within normal range. ESR is elevated at 31, VBG is normal, CMP shows anion gap of 13.2, magnesium 1.7, low AST and low lipase. CRP is also elevated at 9.34, urinalysis shows protein and ketones. Patient is negative for C. difficile and does have elevated lactoferrin. Remaining stool specimen labs are send outs. Reviewed radiological imaging and spoke to radiologist in regards to chart interpretation. Radiologist states significant diffuse inflammation throughout the colon suggestive more of inflammatory bowel disease. Given that patient has elevated ESR CRP positive and elevated lactoferrin's and CT imaging that is more consistent with inflammatory bowel disease I do feel that that is what patient is having at this time. Patient again has follow-up with [facility] in the next couple weeks. At this time I doubt infectious disease so will place patient on steroids for the next 5 days and arrange a follow-up with primary care provider preferably early next week for reassessment. After discussion of diagnosis and plan of care patient has no further needs, questions, or concerns and states clear understanding to return to the emergency department for any worsening symptoms. This documentation was generated using [employer] dictation system, please disregard any oddities of phrase or misspellings. Of note after patient was discharged did receive lab results that patient was positive for Campylobacter. Patient was contacted about these results and was placed on azithromycin for 3 days. Imaging Data Radiologic Study: Imaging: CT Scan Radiologist's impression: Exam(s) a CT:CT abdomen & pelvis w Exam(s) CT ABDOMEN PELVIS W EXAM: CT ABDOMEN PELVIS W CLINICAL HISTORY: Abdominal pain, diarrhea TECHNIQUE: Imaging Protocol: Axial computed tomography images with coronal and sagittal reformatted images were created and reviewed CONTRAST MATERIAL: Intravenous: Omnipaque 350 Contrast volume:100 mL Oral: No COMPARISON: CT CT CHEST/ABD/PEL W from 11/08/2022 FINDINGS: ABDOMEN: Lung Bases: Normal where visualized. Liver: Normal density. No measurable mass. Portal, Superior Mesenteric, and Splenic Veins: Unremarkable. Gallbladder and Biliary Tract: No radiodense calculus or dilation. Pancreas: Normal density, no abnormal calcifications or inflammatory process. Spleen: Normal. Adrenals: No masses seen. Kidneys: Normal size, contour and axis. No radiodense stones or obstructive uropathy. No masses seen. Abdominal Aorta: Abdominal portion non-dilated. Bowel: There is diffuse moderate wall thickening of the entire colon. There is no evidence of bowel obstruction. The small bowel is unremarkable. Appendix is unremarkable. Peritoneal Cavity: No ascites, collection or mesenteric inflammatory response. No free air. Lymph Nodes: Within normal limits. Bones: Within normal limits for the patient's age. Soft Tissues: There is a small fat containing umbilical hernia. PELVIS: Bladder: Symmetric distention, no gross wall thickening. Reproductive Organs: Unremarkable as visualized. Lymph Nodes: Within normal limits. Bones: Within normal limits for the patient's age. IMPRESSION: 1. Diffuse moderate bowel wall thickening involving the entire colon. This may represent a inflammatory bowel disease. Infection should also be considered. 2. Findings were discussed with Kalen Garsia at 12 p.m. on 06/27/2023. Lab Data Lab results reviewed: Yes I reviewed the patient's lab results. HPI General Mode of arrival: ambulatory. Date/Time Provider Initiated Documentation: 06/27/23 08:26. Limitations to Documentation: no limitations. Information obtained by: patient and RN notes reviewed. History of Present Illness 33 year old M presents to the emergency department with the chief complaint of Abdominal pain, diarrhea, described as moderate and similar to prior episodes, Quality is described as aching, and is localized to the abdomen. Patient reports no radiation. Patient started experiencing this day(s) (4) and it has been constant. No relieving factors improve symptom(s), Medication worsens symptoms (MiraLAX bowel cleanse) . Patient notes malaise. Patient did receive the following treatments prior to arrival, none Related Data Home Medications Medication Instructions Recorded Confirmed alprazolam 1 mg tablet (Xanax) 1 - 2 mg PO DAILY PRN PRN 12/08/17 04/08/23 ibuprofen 800 mg tablet 800 mg PO TID PRN pain #20 tabs 01/13/21 04/08/23 bisacodyl 5 mg tablet,delayed 5 mg PO ONCE colonscopy bowel prep 02/27/23 04/07/23 release (Dulcolax (bisacodyl)) #4 tabs polyethylene glycol 3350 17 238 g PO ONCE colonoscopy prep 02/27/23 04/07/23 gram/dose oral powder #238 grams cyanocobalamin (vitamin B-12) 2,000 mcg DAILY 04/08/23 04/08/23 1,000 mcg/mL injection syringe prednisone 20 mg tablet 60 mg PO DAILY 4 days #12 tabs 06/27/23 azithromycin 500 mg tablet 500 mg PO DAILY 3 days #3 tabs 06/28/23 Previous Rx's Medication Instructions Recorded ibuprofen 800 mg tablet 800 mg PO TID PRN pain #20 tabs 01/13/21 bisacodyl 5 mg tablet,delayed 5 mg PO ONCE colonscopy bowel prep 02/27/23 release (Dulcolax (bisacodyl)) #4 tabs polyethylene glycol 3350 17 238 g PO ONCE colonoscopy prep 02/27/23 gram/dose oral powder #238 grams prednisone 20 mg tablet 60 mg PO DAILY 4 days #12 tabs 06/27/23 azithromycin 500 mg tablet 500 mg PO DAILY 3 days #3 tabs 06/28/23 Allergies Allergy/AdvReac Type Severity Reaction Status Date / Time Sulfa (Sulfonamide Allergy Intermediate as a child Unverified 04/08/23 07:11 Antibiotics) lactose AdvReac Mild Pt. states Unverified 04/08/23 07:11 acid reflux upset stomach, skin stuff General Stated Complaint: Abd Prob SEVERO: 3 Review of Systems Constitutional Constitutional: Reports chills, Denies fever(s), Reports malaise and Reports poor appetite Cardiovascular Cardiovascular: Denies chest pain and Denies dyspnea Respiratory Respiratory: Denies cough and Denies dyspnea Gastrointestinal Gastrointestinal: Reports as per HPI, Reports abdominal pain, Denies melena, Reports hematochezia, Denies change in bowel habits, Reports constipation, Reports diarrhea, Reports nausea and Denies vomiting Genitourinary Genitourinary: Denies hematuria, Denies difficulty urinating, Denies urinary hesitancy, Denies urinary incontinence and Denies urinary urgency Integumentary/Breasts Skin/Breast: Denies rash PFSH All Active Problems (Updated 06/27/23 @ 12:33 by Kalen Garsia NP) Diarrhea (Acute) Samson's esophagus (Acute ~04/2023) Abdominal pain in male (Acute) Distal radial fracture (Acute 01/13/21) LEFT Medical History ADHD Anxiety Autoimmune disease Dyspepsia Surgical History EGD - MAC (12/10/17) H/O colonoscopy 04/08/23 History of esophagogastroduodenoscopy (EGD) (~04/2023) Repair, ACL Trigger Finger release Social History Smoking/Tobacco Use Status: Former Tobacco Use Quit Date: 11/22/20 Smoking risk assessment performed?: Yes Alcohol Intake: former Drug use: Daily Substance use type: marijuana Details: marijuana last used t-3, smoke Current gender identity: male Do you feel safe at home: Yes Do you feel safe in your relationship?: Yes Exam Const General: cooperative Orientation: alert, awake and oriented x3 Resp Effort & Inspection: normal respiratory effort and able to speak in complete sentences Auscultation: clear to auscultation bilaterally Cardio Rate: regular rate Rhythm: regular rhythm Heart Sounds: S1 normal and S2 normal GI Palpation: soft, no hepatosplenomegaly, not firm, no guarding, no masses, no pulsatile masses, not rigid, no splenomegaly and tender in the epigastrum, in the RLQ and in the RUQ Auscultation: normal bowel sounds Back/Spine/Pelvis Back: no CVA tenderness Neuro General: patient alert, patient awake, patient oriented x3, gait normal and moves all extremities Course Vital Signs Vital signs: Vital Signs Pulse 80 06/27/23 08:31 Respiratory Rate 14 06/27/23 08:31 Blood Pressure 119/73 06/27/23 08:31 Pulse Oximetry 97 06/27/23 08:31 Pulse 80 06/27/23 08:31 Respiratory Rate 14 06/27/23 08:31 Respiratory Effort Normal 06/27/23 08:38 Blood Pressure 119/73 06/27/23 08:31 Blood Pressure Position Supine 06/27/23 08:31 Pulse Oximetry 97 06/27/23 08:31 Oxygen Delivery Method Room Air 06/27/23 08:31 Oxygen Flow Rate 0 06/27/23 08:31 Pain Level 5 06/27/23 08:38 Comment epigastric pain mostly 06/27/23 08:31 Lab/Test Results Lab/Test Results: Laboratory Tests Range/Units 06/27/23 09:12 VBG Lactate (0.6-1.4) mmol/L 0.7 PAWSS Have you Been Recently Intoxicated or Drunk Within the Last 30 days?: Yes Have you Ever Experienced Previous Episodes of Alcohol Withdrawal?: No Have you ever Experienced Withdrawal Seizures?: No Have you ever Experienced Delirium Tremens(DT)s?: No Have you ever undergone Alcohol Rehabilitation Treatment (i.e, inpt ot outpatient treatment programs)?: No Have you ever Experienced Blackouts?: No Have you ever Combined Alcohol with other Downers within the last 90 days?: No Have you ever Combined Alcohol with any other Substance of Abuse during the last 90 days?: No Positive Blood Alcohol level on Presentation? [PCS.BAL]: No Evidence of Increased Autonomic Activity (i.e. HR>120, tremor, sweating, agitation, nausea)?: No Result: 1
[2023-06-27 09:25] LABS: ESR 31 mm/hr (0-15)
[2023-06-27] MEDS: Barium Sulfate 2% W/V-Berry Smoothie 450 ML BTL PO (09:28)
[2023-06-27 09:36] LABS: ALT 17 U/L (16-63); AST 11 U/L (15-37); Albumin 3.6 g/dL (3.4-5.0); Alkaline Phosphatase 77 U/L (46-116); Anion Gap 13.2 mmol/L (3-11); BUN 7 mg/dL (7-18); Bilirubin, Total 0.5 mg/dL (0.2-1.0); C-Reactive Protein 9.34 mg/dL (0.0-0.3); CO2 25.8 mmol/L (21.0-32.0); CREATININE 1.2 mg/dL (0.70-1.30); Calcium 8.8 mg/dL (8.5-10.1); Chloride 99 mmol/L (98-107); Estimated GFR 81.89 (mL/min/1.73m2); Glucose 92 mg/dL (74-106); Lipase 15 U/L (16-77); Magnesium 1.7 mg/dL (1.8-2.4); Potassium 3.9 mmol/L (3.5-5.1); Sodium 138 mmol/L (136-145); Total Protein 7.4 g/dL (6.4-8.2)
[2023-06-27 09:45] LABS: Absolute Eosinophil Count 0.09 10^3/uL (0.0-0.7); Absolute Monocyte Count 1.37 10^3/uL (0.1-0.8); Absolute Neutrophil Count 6.59 10^3/uL (1.2-6.7); Atypical Lymphocytes % 1; Bands % 2
[2023-06-27 09:46] LABS: Diff Comment Manual Differential
[2023-06-27 11:24] LABS: Bilirubin Small (Negative); Blood Negative (Negative); Clarity Clear (Clear); Glucose Negative (Negative); Ketones 40 mg/dL (Negative); Leukocyte Esterase Negative (Negative); Nitrite Negative (Negative); Urobilinogen 0.2 mg/dL (Up to 0.2)
[2023-06-27] MEDS: Normal Saline - Diluent 50 ML VIAL IJ (11:28)
[2023-06-27] MEDS: Normal Saline Flush 10 ML SYR IVP (11:29)
[2023-06-27] MEDS: Omnipaque 350 MG/ML 500 ML BTL-Imaging package IJ (11:29)
[2023-06-27 11:31] LABS: Bacteria Rare HPF (Negative); C & S Indicated? No; Casts Negative LPF (Negative); Crystals Negative HPF (Negative); Epithelial Cells Rare HPF (Negative); Mucus Moderate (Negative); Other Cells Negative (Negative); RBC 0-2 HPF (0-2); WBC 0-2 HPF (0-5)
[2023-06-27 12:07] LABS: C Diff PCR Negative (Negative)
[2023-06-27] MEDS: predniSONE 20 MG TAB 60 MG PO (12:31)
--- NOTE | 2023-06-27 12:36 | NUR.NOTE ---
Nursing Note: PT needs follow up in 3-5 days with PCP for bloody Diarrhea question Inflammatory bowel disease. Yuliya, ED
[2023-06-27 23:39] LABS: Campylobacter PCR Positive (Negative); Salmonella PCR Negative (Negative); Shiga Toxin PCR Negative (Negative); Shigella/Enteroinvasive Ecoli Negative (Negative)
== END 2023-06-27 15:44 | disposition home or self-care (01) ==
PROVIDERS: Emergency Provider Nurse Practitioner Family; PCP Family Medicine
DX: R19.7 Diarrhea, unspecified (principal); R10.9 Unspecified abdominal pain
CPT/HCPCS: 80053; 83690; 85652; 87329; 87493; 87505; 96360; 96361; 99285; 74177; 81003; 81015; 83605; 83630; 83735; 85025; 86140; 87177; 99284; J7512

== ENCOUNTER 2023-11-06 03:51 | Outpatient (CLI) | payer MEDICAID, SELFPAY ==
[2023-11-06 14:32] LABS: Folate > 20.0 ng/mL (8.6-20.0); Vitamin B12 > 2000 pg/mL (193-986)
[2023-11-06 14:39] LABS: Vitamin D 25 Total 54.6 ng/mL (30-100)
[2023-11-07 08:53] LABS: Homocysteine 8.1 umol/L (5.0-13.9)
[2023-11-10 16:08] LABS: Estradiol, Mass Spectrometry 12 pg/mL (10-40); Estrone 23 pg/mL (10-60)
[2023-11-11 15:54] LABS: Dehydroepiandrosterone (DHEA) 3.5 ng/mL (<10)
[2023-11-13 09:10] LABS: Testosterone, Bioavailable 81 ng/dL (72-235); Testosterone, Free 8.65 ng/dL (4.85-19.0); Testosterone, Total 360 ng/dL (240-950)
== END 2023-11-06 03:52 | disposition home or self-care (01) ==
LOC: LBO 03:52
PROVIDERS: PCP Family Medicine; Visit Provider Family Medicine
DX: K21.9 Gastro-esophageal reflux disease without esophagitis (principal); E34.9 Endocrine disorder, unspecified; E53.8 Deficiency of other specified B group vitamins; R53.83 Other fatigue; K59.00 Constipation, unspecified
CPT/HCPCS: 36415; 82306; 83090; 84402; 84403; 84410; 82607; 82626; 82670; 82679; 82746

== ENCOUNTER 2024-11-15 13:26 | Outpatient (CLI) | payer MEDICAID, SELFPAY ==
--- NOTE | 2024-11-15 | DI.RAD_ITS ---
Exam(s) XR FOOT RT COMPLETE EXAM: XR FOOT RT COMPLETE CLINICAL HISTORY: Pain rt foot M79.671. TECHNIQUE: 2D digital imaging was performed. Three views. COMPARISON: No exams were available for comparison FINDINGS: BONES: No acute fracture is present. No bony destructive lesion is seen. Tiny heel spur. JOINTS: No dislocation present. SOFT TISSUE: Normal. IMPRESSION: Unremarkable radiographs of the right foot. DATA REPOSITORY: RADIATION DOSE DELIVERED:
== END 2024-11-15 13:46 ==
PROVIDERS: PCP Family Medicine; Visit Provider Family Medicine
DX: M79.671 Pain in right foot (principal)
CPT/HCPCS: 73630